=== PATIENT | male | born 1935 | race Caucasian/White ===

== ENCOUNTER → 2016-12-09 | Outpatient (CLI) | payer BC ==
[~2016-12-09] MED LIST: ACC10 PO; AMLO5TAB2 PO; AMOX500C3 PO; ASPI-435 PO; DUTA0.5C PO; HYDR-3419 PO; METO25TA3 PO; ROSU40TA PO; SERT-234 PO; TRIA37.5 PO; TRVOPS OP
[2016-12-09 12:27] LABS: ALT/SGPT 32 U/L (12-78); AST/SGOT 30 U/L (15-37); BLOOD UREA NITROGEN 35 mg/dl (7-18); BUN/CREATININE RATIO 29.4 (10-20); CALCIUM 9.4 mg/dl (8.5-10.1); CARBON DIOXIDE 28 mmol/L (21-32); CHLORIDE 105 mmol/L (98-107); CHOLESTEROL 128 mg/dl (0-200); GLUCOSE 111 mg/dl (70-99); SODIUM 141 mmol/L (136-145)
[2016-12-09 12:30] LABS: ALB/GLOB RATIO 1.1 (0.9-2); ALKALINE PHOSPHATASE 65 U/L (45-117); CHOLESTEROL/HDL RATIO 1.8; HDL CHOLESTEROL 73 mg/dl; LDL CHOLESTEROL CALCULATED 46 mg/dl; TRIGLYCERIDES 47 mg/dl (0-150); VERY LOW DENSITY LIPOPROT CALC 9 mg/dl
== END | disposition home or self-care (01) ==
LOC: C.LABPVFM 08:39
PROVIDERS: ATTEND Family Medicine
DX: E78.5 Hyperlipidemia, unspecified (principal); I10 Essential (primary) hypertension

== ENCOUNTER → 2017-04-12 | Outpatient (CLI) | payer BC ==
[2017-04-12 13:07] LABS: ALT/SGPT 30 U/L (12-78); BLOOD UREA NITROGEN 35 mg/dl (7-18); CARBON DIOXIDE 29 mmol/L (21-32); CHLORIDE 103 mmol/L (98-107); GLUCOSE 110 mg/dl (70-99); POTASSIUM 4.8 mmol/L (3.5-5.1); SODIUM 141 mmol/L (136-145)
[2017-04-12 13:10] LABS: ALKALINE PHOSPHATASE 64 U/L (45-117); AST/SGOT 32 U/L (15-37)
[2017-04-12 13:48] LABS: CALCIUM 9.4 mg/dl (8.5-10.1)
== END | disposition home or self-care (01) ==
LOC: C.LABPVFM 09:17
PROVIDERS: ATTEND Family Medicine
DX: I10 Essential (primary) hypertension (principal)

== ENCOUNTER → 2017-10-18 | Outpatient (CLI) | payer BC ==
[2017-10-18 13:01] LABS: BLOOD UREA NITROGEN 45 mg/dl (7-18); BUN/CREATININE RATIO 29.6 (10-20); CALCIUM 9.3 mg/dl (8.5-10.1); CARBON DIOXIDE 32 mmol/L (21-32); CHLORIDE 103 mmol/L (98-107); CREATININE 1.53 mg/dl (0.60-1.40); GLUCOSE 123 mg/dl (70-99); SODIUM 139 mmol/L (136-145)
== END | disposition home or self-care (01) ==
LOC: C.LABPVFM 09:47
PROVIDERS: ATTEND Physician Assistant
DX: R60.9 Edema, unspecified (principal)

== ENCOUNTER → 2017-11-11 | Outpatient (CLI) | payer BC ==
[~2017-11-11] MED LIST changes: +CARV3.122 PO; +CRG3125 PO; +FINA5TAB PO; +FURO40TA3 PO; +POTA10CA28 PO; +QUIN1TAB49 PO
[2017-11-11 13:04] LABS: BLOOD UREA NITROGEN 50 mg/dl (7-18); CALCIUM 9.3 mg/dl (8.5-10.1); CARBON DIOXIDE 32 mmol/L (21-32); CREATININE 1.43 mg/dl (0.60-1.40); GLUCOSE 169 mg/dl (70-99); POTASSIUM 4.8 mmol/L (3.5-5.1); SODIUM 139 mmol/L (136-145)
== END | disposition home or self-care (01) ==
LOC: C.LABPVFM 09:19
PROVIDERS: ATTEND Physician Assistant
DX: E87.6 Hypokalemia (principal)

== ENCOUNTER → 2018-01-13 | Outpatient (CLI) | payer BC ==
[~2018-01-13] MED LIST changes: -CARV3.122 PO; -CRG3125 PO; -FINA5TAB PO; -FURO40TA3 PO; -POTA10CA28 PO; -QUIN1TAB49 PO
[2018-01-13 12:30] LABS: HEMATOCRIT 43.3 % (42-52); HEMOGLOBIN 13.8 g/dL (14.0-18.0); MEAN CELL VOLUME 96.4 fL (80-100); MEAN CORPUSCULAR HEMOGLOBIN 30.7 pg (25-34); MEAN CORPUSCULAR HGB CONC 31.9 g/dl (32-36); MEAN PLATELET VOLUME 12.4 fL (7.4-10.4); PLATELET COUNT 182 K/uL (130-400); RED CELL DISTRIBUTION WIDTH CV 13.9 % (11.5-14.5); RED CELL DISTRIBUTION WIDTH SD 49.2 fL (36.4-46.3); WHITE BLOOD COUNT 6.04 K/uL (4.8-10.8)
[2018-01-13 13:14] LABS: ALBUMIN 4.1 gm/dl (3.4-5.0); ALT/SGPT 28 U/L (12-78); BLOOD UREA NITROGEN 37 mg/dl (7-18); CALCIUM 9.9 mg/dl (8.5-10.1); CARBON DIOXIDE 34 mmol/L (21-32); CHOLESTEROL 119 mg/dl (0-200); CREATININE 1.29 mg/dl (0.60-1.40); GLUCOSE 128 mg/dl (70-99); POTASSIUM 4.1 mmol/L (3.5-5.1); SODIUM 140 mmol/L (136-145)
[2018-01-13 13:17] LABS: ALKALINE PHOSPHATASE 83 U/L (45-117); AST/SGOT 32 U/L (15-37); LDL CHOLESTEROL CALCULATED 48 mg/dl; TOTAL PROTEIN 8.7 gm/dl (6.4-8.2)
== END | disposition home or self-care (01) ==
LOC: C.LABPVFM 09:25
PROVIDERS: ATTEND Family Medicine
DX: I10 Essential (primary) hypertension (principal); E78.5 Hyperlipidemia, unspecified

== ENCOUNTER → 2018-01-18 | Outpatient (CLI) | payer BC ==
--- NOTE | 2018-01-18 12:13 | DIAGNOSTIC IMAGING REPORT ---
(CHEST) THORAX WITHOUT CLINICAL HISTORY: R05 [id number] Pleural [id number] COMPARISON STUDY: June 30, 2016 CT DOSE: 602.52 mGycm TECHNIQUE: CT of the thorax was performed from the thoracic inlet to the lung bases. Images are reviewed in the axial, sagittal, and coronal planes. IV contrast was not administered for this examination. A dose lowering technique was utilized adhering to the principles of ALARA. FINDINGS: Thyroid: There is slight asymmetric enlargement of the left lobe of the thyroid. Thoracic aorta: The thoracic aorta is normal in course and caliber, noting standard 3 vessel arch anatomy. Heart: There are dense coronary artery calcifications. Lungs and pleural spaces: There is a large partially loculated right pleural effusion. There are right lung compressive atelectatic changes. No left pleural effusion is visualized. There is no focal pulmonary consolidation on the left. There is mild respiratory motion artifact. Mediastinum: No pathologically enlarged mediastinal lymph nodes are visualized. Tonya: There is no evidence of pathologic hilar adenopathy given the limitations of a noncontrast study Axilla: There is no pathologic axillary lymphadenopathy Upper abdomen: The gallbladder surgically absent Skeletal structures: There are postsurgical changes of a midline sternotomy. Sternal step-off on the sagittal reformatted views are felt to be secondary to respiratory motion artifact IMPRESSION: 1. Large right pleural effusion with right lung compressive atelectatic changes 2. No evidence of pathologic adenopathy Electronically signed by: Can Montelongo M.D. 01/18/2018 12:12 PM Dictated Date/Time: 01/18/2018 12:06 PM
== END | disposition home or self-care (01) ==
LOC: C.CTS 11:49
PROVIDERS: ATTEND Internal Medicine Critical Care Medicine
DX: J90 Pleural effusion, not elsewhere classified (principal); R05 Cough; R13.10 Dysphagia, unspecified

== ENCOUNTER → 2018-01-20 | Outpatient (CLI) | payer BC ==
--- NOTE | 2018-01-20 11:48 | DIAGNOSTIC IMAGING REPORT ---
VIDEO SWALLOW HISTORY: Dysphagia R05 [id number] Dysphagia TECHNIQUE: Video fluoroscopic evaluation of swallowing was performed in the AP and lateral projections by the speech pathology staff. The patient is fed nectar-thick and thin liquid barium, a barium coated wafer, and barium pudding. FLUOROSCOPY TIME: 1.7 minutes. COMPARISON STUDY: None. FINDINGS: There is normal hyoid excursion and epiglottic deflection. No significant penetration or aspiration identified. Swallowing function is within normal limits. IMPRESSION: 1. No aspiration identified. 2. Please see the speech pathologist report for detailed findings and recommendations. The above report was generated using voice recognition software. It may contain grammatical, syntax or spelling errors. Electronically signed by: Bernard Cabrales M.D. 01/20/2018 11:47 AM Dictated Date/Time: 01/20/2018 11:45 AM
--- NOTE | 2018-01-20 11:49 | SWALLOWING EVALUATION ---
HISTORY: This 82 year-old man, from home, was referred for a VFSS at [facility] secondary to complaints of coughing after intake. Currently the patient's diet level is regular with thins. Pt. has a past medical history significant for CAPD CABG, SOB, abdominal pain, osteoarthritis. PROCEDURE: The patient was seen in the Radiology Department of [facility] for the VFSS. Cursory examination of the oral cavity revealed adequate dentition. Movement of the articulators was WNL. Pt. presented as OUZINKIE. The patient was seated in a wheelchair and was viewed in both the Anterior-Posterior (A-P) and Lateral planes. Volitional phonation exercises completed in the A-P plane revealed bilateral vocal fold movement and vocal intensity within functional limits. In the lateral plane, the patient was given the following barium-infused boluses: 1 tsp thin barium with oral hold 1x, self presented single cup swallow-thin barium 1x, self presented serial cup swallow 1x. 1 tsp nectar thick barium with oral hold 1x, self presented single cup swallow- nectar thick barium 1x. Esophageal scan was completed with 1 tsp of barium infused pudding. RESULTS: Oral Phase: Pt. had no labial escape of any food or liquid items presented. Pt. demonstrated a cohesive bolus between tongue and palatal seal. Timely and efficient chewing and mashing was observed with all consistencies as well as brisk tongue motion and complete oral clearance. Initiation of pharyngeal swallow began with bolus head in the valleculae. Overall WFL for oral phase of swallow. Pharyngeal Phase: Soft Palate Elevation was complete for all boluses. Laryngeal elevation and movement of thyroid cartilage was WFL with complete approximation of arytenoids to epiglottic base. Anterior Hyoid excursion was WFL and complete epiglottic inversion noted. Laryngeal Vestibular closure was complete with no barium noted in laryngeal vestibule or on the valleculae. Tongue base retraction was noted with all consistencies and tongue base made effective contact with posterior pharyngeal wall throughout study. No pharyngeal residue was observed. Overall WFL for pharyngeal phase of the swallow. Pt. did NOT aspirate or penetrate on food items presented. Esophageal Phase: Opening and closing of the UES noted. Espohageal stage of the swallow appeared WFL. SUMMARY/RECOMMENDATIONS: Overall pt. presented as WFL for oral-pharyngeal stages of the swallow. Recommendin. Regular diet with thin liquids. 2. Safe Swallow Strategies (small bite, small sips, slow rate) Thank you for referral of this patient. Please contact me at if any additional information is needed.
== END | disposition home or self-care (01) ==
LOC: C.RAD 11:09
PROVIDERS: ATTEND Internal Medicine Critical Care Medicine
DX: R05 Cough (principal); R13.10 Dysphagia, unspecified

== ENCOUNTER 2018-02-01 10:02 | Day surgery (SDC) | payer BC ==
--- NOTE | 2018-01-31 17:53 | History and Physical ---
History & Physical Date of Service Jan 31, 2018. History & Physical The patient is a pleasant 82 year old male that presents today for ultrasound evaluation of possible thoracentesis of a large right-sided loculated pleural effusion. Recent CT of the chest performed 01/18/2018 reviewed in notable for multiple loculated effusions on the right hemithorax ease. 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 His post-operative course was notable for right pleural effusion requiring thoracentesis but was otherwise unremarkable. Additional PMH includes hypertension, hyperlipidemia, decompensated diastolic heart failure, extensive CAD, and osteoarthritis. As a child, he had rheumatic fever at age 9. He denies childhood asthma or allergies. He is hard of hearing and wears bilateral hearing aids. He denies a family history of lung disease. His mother was killed in an accident and his father of a CVA at age 78. He is a lifetime nonsmoker. He denies any alcohol consumption or drug use. He lives with his in the home they built in 1981. He has no known exposures. His house has not been tested for radon but reports that they do not use the basement of their home. He denies mold/ mildew in the home. No current pets. They use electric heat. 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 He rarely travels. He denies history of TB exposure. He has no known allergies. He denies history of GERD. The referral from the [facility] pulmonology department requests management of right pleural effusion. The referral notes worsening of right pleural effusion by chest x-ray 10/2017 with increased systemic symptoms of fluid overload. The referral notes that the right pleural effusion was initially noted 05/2016 with symptomatic improvement with adjustment of diuretics. CT chest 12/11/2013 significantly elevated right hemidiaphragm is noted. The elevated hemidiaphragm is also noted when reviewing post-operative chest x-ray films from 01/16/2008. He reports that he has had recent testing including the following: Echocardiogram 09/07/2017. Results reviewed note pulmonary pressures significantly increased with PASP estimated 82 mm Hg, severe concentric LVH, EF 66%, grade II systolic dysfunction, moderate calcification of the posterior mitral valve annulus, mild MR and TR, and moderate biatrial enlargement. Pulmonary function testing 02/04/2017 with FVC 66% (+5), FEV1 61% (+10), TLC 90%, RV 140%. Nocturnal pulse oximetry 12/31/2016 without desaturation. He states he has had a persistent cough for some time. He is unable to identify when the cough began. He states he notes that the cough worsens after eating and drinking. At times the cough is productive of a thick yellow sputum. He also experiences nausea at times with eating. He does have shortness of breath with activity. His states this is not new but is unable to identify when it began. He states that it will resolve with rest. His states his snoring has improved over the years. He is relatively active outside and does not feel that the shortness of breath limits his activities. He reports that he had about a 10 pound weight gain when evaluated last at [facility]. His weight was noted 11/23/2017 at 207 pounds. Weight today is down at 201 pounds 6 oz. He does report bilateral lower extremity edema. He denies chest pain, palpitations, abdominal pain, vomiting. He reports that he is taking all medications as directed and denies side effects from medications. Active Problems 1. Abrasion of forearm 2. Aortic valve replaced 3. Benign localized hyperplasia of prostate with urinary obstruction 4. Benign neoplasm of skin of upper limb, including shoulder (D23.60) 6. CAD (coronary atherosclerotic disease) (I25.10) 7. Cervical spondylosis (M47.812) 8. Chronic low back pain (M54.5,G89.29) 9. Cognitive disorder (F09) 10. Cough (R05) 11. Depression (F32.9) 12. Diverticulosis of colon (K57.30) 13. Dyslipidemia (E78.5) 14. Dyspnea on exertion (R06.09) 15. Edema (R60.9) 16. Elevated serum creatinine (R79.89) 17. Fluid overload, unspecified (E87.70) 18. Gait disorder (R26.9) 19. Glaucoma (H40.9) 20. Hearing loss (H91.90) 21. Hyperkalemia (E87.5) 22. Hyperkeratosis of skin (L85.9) 23. Hypertension (I10) 24. Impaired fasting glucose (R73.01) 25. Left shoulder pain (M25.512) 26. Osteoarthritis (M19.90) 27. Peripheral edema (R60.9) 28. Wound, open, wrist (S61.509A) Past Medical History 1. History of Cholelithiasis 2. History of rheumatic fever (Z86.79) Surgical History 1. History of Bypass Graft Using Vein: Femoral-popliteal 2. History of Cholecystectomy Laparoscopic 3. History of Heart Valve Replacement 4. History of Total Hip Replacement 5. History of Umbilical Hernia Repair 6. CABG x 1 vessel replacement on 01/01/2008 7. 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 Family history of diabetes mellitus (Z83.3) Social History Marital History - Currently Never a smoker Never Drank Alcohol Never used moist powdered tobacco (Z78.9) No secondhand smoke exposure (Z78.9) Retired From Work Current Meds 1. Finasteride 5 MG Oral Tablet; TAKE 1 TABLET DAILY DIRECTED; 2. Finasteride 5 MG Oral Tablet; TAKE 1 TABLET DAILY; 3. Sertraline HCl - 100 MG Oral Tablet; 4. Crestor 40 MG Oral Tablet; Take 1 tablet daily; 5. Aspirin EC 81 MG Oral Tablet Delayed Release; 2 daily; 6. Quinapril HCl - 40 MG Oral Tablet; TAKE 1 TABLET DAILY; 7. Amoxicillin 500 MG Oral Tablet; take four one hour before procedure; 8. Carvedilol TABS; 9. Furosemide 40 MG Oral Tablet; 10. Potassium Chloride ER 20 MEQ Oral Tablet Extended Release; one tab daily; Allergies 1. No Known Drug Allergies Immunizations Pneumo Other --- Series1: 30-Sep-2008 Td/DT --- Series1: 19-Apr-2017 Vital Signs Height: 5 ft 7 in Weight: 201 lb 6 oz BMI Calculated: 31.54 BSA Calculated: 2.03 Respiration: 18 Blood Pressure: 146 / 88, LUE, Sitting O2 Saturation: 95, RA Heart Rate: 80 Temperature: 98 F Constitutional General appearance: No acute distress, well appearing and well nourished. Eyes Conjunctiva and lids: No swelling, erythema, or discharge. Pupils and irises: Equal, round and reactive to light. Ears, Nose, Mouth, and Throat External inspection of ears and nose: Normal. Otoscopic examination: Tympanic membrance translucent with normal light reflex. Canals patent without erythema. Oropharynx: Normal with no erythema, edema, exudate or lesions. Pulmonary Respiratory effort: No increased work of breathing or signs of respiratory distress. Auscultation of lungs: Abnormal. Decreased breath sounds with dullness/no cough any noted in right lower lobe posterior subsegment. Cardiovascular Palpation of heart: Normal PMI, no thrills. Auscultation of heart: Normal rate and rhythm, normal S1 and S2, without murmurs. Examination of extremities for edema and/or varicosities: Normal. Abdomen Abdomen: Non-tender, no masses. Liver and spleen: No hepatomegaly or splenomegaly. Lymphatic Palpation of lymph nodes in neck: No lymphadenopathy. Musculoskeletal Gait and station: Normal. Digits and nails: Normal without clubbing or cyanosis. Inspection/palpation of joints, bones, and muscles: Normal. Skin Skin and subcutaneous tissue: Normal without rashes or lesions. Neurologic Cranial nerves: Cranial nerves 2-12 intact. Reflexes: 2+ and symmetric. Sensation: No sensory loss. Psychiatric Orientation to person, place and time: Normal. Mood and affect: Normal.
[~2018-02-01] VITALS: Ht 172.7 cm; Wt 89.0 kg
[2018-02-01 10:30] VITALS: BP 134/76; PULSE 73; TEMP 36.5; O2SAT 95; Ht 172.7 cm; Wt 89.0 kg
--- NOTE | 2018-02-01 10:43 | History & Physical Bridge Note ---
H&P Re-Evaluation Bridge Note: I have examined the patient, reviewed the History & Physical and in the interval since the performance of the History & Physical I have noted the following changes of clinical significance: No changes noted
[2018-02-01 10:55] LABS: INR 1.1 (0.9-1.1)
[2018-02-01 11:45] VITALS: BP 149/87; PULSE 70; TEMP 36.7; O2SAT 98
--- NOTE | 2018-02-01 11:54 | Procedure Note ---
Procedure Note Date of Service Feb 01, 2018. Procedure Note Procedures: Right sided Thoracentesis Consent: obtained via the patient and placed into the chart Pre-Procedural Dx: Chronic right-sided pleural effusion Post-Procedural Dx: Chronic right-sided pleural effusion Analgesia: 8cc of 1% Liquid Lidocaine Procedure: The patient was placed in an upright position and thoracic US was used to select a spot for the procedure. A spot along the posterior axillary line was marked in the 7th intercostal space. The patient was then draped and prepped in a sterile fashion. A modified Seldinger technique was then used for catheter placement. Flowing this approximately 1500cc of dark yellow pleural fluid was removed. The patient was then cleaned and placed at a 60 degree angle in the bed were the US was used to evaluate for possible pneumothorax. The US showed good lung sliding and [place]on [place] sign. Notable traumatic improvement in the overall fluid level via ultrasound now only minimal to moderate in size. EBL: none Complications: none
--- NOTE | 2018-02-01 11:55 | Discharge Instructions ---
Discharge Instructions Date of Service Feb 01, 2018. Admission Reason for Admission: Pleural Effusion Discharge Discharge Diagnosis / Problem: Chronic right-sided pleural effusion Discharge Goals Goal(s): Improve function, Diagnostic testing Activity Recommendations Activity Limitations: resume your previous activity Exercise/Sports Limitations: rest today Shower/Bathe: no limitations Driving or Machine Use: no limitations . Instructions / Follow-Up Instructions / Follow-Up At the [facility] pulmonary clinic Current Hospital Diet Patient's current hospital diet: Discharge Diet Recommended Diet: Regular Diet Procedures Procedures Performed: Right-sided pleural effusion under ultrasound guidance Pending Studies Studies pending at discharge: no Laboratory Results Lipid Panel Test 01/13/18 09:25 Range/Units Triglycerides Level 71 0-150 mg/dl Cholesterol Level 119 0-200 mg/dl HDL Cholesterol 57 mg/dl Cholesterol/HDL Ratio 2.1 LDL Cholesterol, Calculated 48 mg/dl Medical Emergencies . Who to Call and When: Medical Emergencies: If at any time you feel your situation is an emergency, please call 911 immediately. . Non-Emergent Contact Non-Emergency issues call your: Manager [employer] Call Non-Emergent contact if: you have a fever, temperature is above 101 . . "Provider Documentation" section prepared by Perfecto Eckert. .
[2018-02-01 12:03] VITALS: BP 160/74; PULSE 71; TEMP 36.7; O2SAT 98
[2018-02-01 12:18] VITALS: BP 163/84; PULSE 87; TEMP 36.7; O2SAT 94
[2018-02-01 12:37] LABS: PLEURAL FLUID TOTAL PROTEIN 4.3 g/dl
== END 2018-02-01 12:20 | disposition home or self-care (01) ==
LOC: C.ACU 10:02
PROVIDERS: ATTEND Internal Medicine Critical Care Medicine
DX: J90 Pleural effusion, not elsewhere classified (principal); I11.0 Hypertensive heart disease with heart failure; I50.30 Unspecified diastolic (congestive) heart failure; N40.0 Benign prostatic hyperplasia without lower urinary tract symptoms; I25.10 Atherosclerotic heart disease of native coronary artery without angina pectoris; E78.5 Hyperlipidemia, unspecified; R73.01 Impaired fasting glucose; M19.90 Unspecified osteoarthritis, unspecified site; Z79.82 Long term (current) use of aspirin; Z98.62 Peripheral vascular angioplasty status; Z95.2 Presence of prosthetic heart valve; Z95.1 Presence of aortocoronary bypass graft; Z82.3 Family history of stroke; Z83.3 Family history of diabetes mellitus

== ENCOUNTER → 2018-02-06 | Outpatient (CLI) | payer BC ==
--- NOTE | 2018-02-06 16:18 | DIAGNOSTIC IMAGING REPORT ---
(CHEST) THORAX WITHOUT CLINICAL HISTORY: 82 years-old Male presenting with R05 [id number] Pleural effusion Patient is status post thoracentesis. TECHNIQUE: Multidetector CT imaging of the chest was performed without the use of intravenous contrast. IV contrast: None. A dose lowering technique was used consistent with the principles of ALARA (as low as reasonably achievable). COMPARISON: 01/18/2018. CT DOSE (mGy.cm): The estimated cumulative dose is 494.34 mGycm. FINDINGS: Endodontic Assistant topogram: Median sternotomy wires and cholecystectomy clips. Moderate to large right pleural effusion. On soft tissue windows, enlarged thyroid. No axillary, supraclavicular, or mediastinal lymphadenopathy. Evaluation of the rosa limited without intravenous contrast. Atherosclerosis of the aorta. Multichamber enlargement of the heart. Coronary artery, mitral annular, and aortic valve calcification. Moderate loculated right pleural effusion. No left pleural effusion. No pericardial effusion. Upper abdomen normal. On lung windows, extensive consolidation and volume loss in the right lower and middle lobes. Small anterior right pneumothorax. Larger pneumothorax component at the right apex. Minimal bandlike opacities at the left lung base likely atelectasis. Bronchial wall thickening, right greater than left. Central airways remain patent. On bone windows, sternotomy changes. Degenerative changes of the spine. Degenerative changes of the bilateral glenohumeral joints, left greater than right. Loose body noted in the subcoracoid recess on the right. IMPRESSION: 1. Loculated right hydropneumothorax. Moderate fluid component and two small pneumothorax components. 2. Extensive right mid and lower lobe consolidation, which may represent extensive atelectasis although underlying infection cannot be excluded. 3. Bronchial wall thickening could indicate congestive change or bronchitis. 4. Cardiomegaly. The report will be called/faxed according to standard departmental protocol. Electronically signed by: Damon Manuel M.D. 02/06/2018 4:17 PM Dictated Date/Time: 02/06/2018 4:11 PM
== END | disposition home or self-care (01) ==
LOC: C.CTS 15:30
PROVIDERS: ATTEND Internal Medicine Critical Care Medicine
DX: J90 Pleural effusion, not elsewhere classified (principal); R05 Cough; J94.2 Hemothorax

== ENCOUNTER → 2018-07-10 | Outpatient (CLI) | payer BC, OTHER ==
[~2018-07-10] MED LIST changes: -ACC10 PO; -AMLO5TAB2 PO; +CARV3.122 PO; +CRG3125 PO; -DUTA0.5C PO; +FINA5TAB PO; +FURO40TA3 PO; -HYDR-3419 PO; -METO25TA3 PO; +POTA10CA28 PO; +QUIN1TAB49 PO; -TRIA37.5 PO; -TRVOPS OP
[2018-07-10 12:26] LABS: HEMOGLOBIN 10.1 g/dL (14.0-18.0); MEAN CELL VOLUME 95.2 fL (80-100); MEAN CORPUSCULAR HEMOGLOBIN 30.1 pg (25-34); MEAN CORPUSCULAR HGB CONC 31.6 g/dl (32-36); MEAN PLATELET VOLUME 11.3 fL (7.4-10.4); PLATELET COUNT 211 K/uL (130-400); RED CELL DISTRIBUTION WIDTH CV 13.9 % (11.5-14.5); RED CELL DISTRIBUTION WIDTH SD 48.1 fL (36.4-46.3); WHITE BLOOD COUNT 7.14 K/uL (4.8-10.8)
[2018-07-10 13:10] LABS: ALBUMIN 3.4 gm/dl (3.4-5.0); ALKALINE PHOSPHATASE 85 U/L (45-117); ALT/SGPT 22 U/L (12-78); AST/SGOT 26 U/L (15-37); BLOOD UREA NITROGEN 74 mg/dl (7-18); CARBON DIOXIDE 28 mmol/L (21-32); CHOLESTEROL 103 mg/dl (0-200); CREATININE 1.82 mg/dl (0.60-1.40); GLUCOSE 133 mg/dl (70-99); LDL CHOLESTEROL CALCULATED 43 mg/dl; POTASSIUM 3.8 mmol/L (3.5-5.1); SODIUM 133 mmol/L (136-145); TOTAL PROTEIN 8.4 gm/dl (6.4-8.2)
== END | disposition home or self-care (01) ==
LOC: C.LABPVFM 09:51
PROVIDERS: ATTEND Physician Assistant
DX: I50.33 Acute on chronic diastolic (congestive) heart failure (principal); R73.01 Impaired fasting glucose; S50.819A Abrasion of unspecified forearm, initial encounter; X58.XXXA Exposure to other specified factors, initial encounter

== ENCOUNTER 2019-03-16 19:39 | Inpatient (IN) ==
[2019-03-16] MEDS ORDERED: SODIUM CHLORIDE 0.9% 1000ML 500 ML IV ONE (20:46)
[2019-03-16 20:49] LABS: Hematocrit (blood only) 25.1 % (42-52); Hemoglobin 7.9 g/dL (14.0-18.0); Mean Corpuscular Hgb Conc 31.5 g/dL (32-36); Mean Corpuscular Volume 82.6 fL (80-100); Mean Platelet Volume 10.1 fL (7.4-10.4); Platelet Count 479 K/uL (130-400); RDW Coefficient of Variation 16.7 % (11.5-14.5); RDW Standard Deviation 50.1 fL (36.4-46.3); Red Blood Count 3.04 M/uL (4.7-6.1); White Blood Count 13.52 K/uL (4.8-10.8)
[2019-03-16 20:57] LABS: Albumin Level 2.6 gm/dl (3.4-5.0); Calcium 9.3 mg/dl (8.5-10.1); Creatinine Clr Calc Pharmacy 27.3 ml/min; Est GFR (African American) 34.8; Potassium 3.8 mmol/L (3.5-5.1)
[2019-03-16 21:00] LABS: Albumin Globulin Ratio 0.4 (0.9-2); Bilirubin,Total 0.5 mg/dl (0.2-1); Globulin 5.8 gm/dl (2.5-4.0); Magnesium 2.2 mg/dl (1.8-2.4); Total Protein 8.4 gm/dl (6.4-8.2)
[2019-03-16 21:08] LABS: Partial Thromboplastin Ratio 1.9; Prothrombin Time 70.1 Seconds (9.0-12.0)
--- NOTE | 2019-03-16 21:09 | Emergency Department Note ---
Entered by Dannie Walker acting as a scribe for Aydin Peralta MD History of Present Illness General Chief complaint: GI Bleed Stated complaint: GI BLEED Time Seen by Provider: 03/16/19 20:36 Source: patient and family History of Present Illness Onset (ago): hour(s) (labs drawn at 14:30) Location: head (global) Pain Consistency: + other (persistent weakness but denies pain) Quality: + other (bloodwork showing anemia) Associated symptoms: + weakness and + other (appears pale per family) The patient is an 83 year old male who presents to the Emergency Room after referral for anemia. Family reports that the patient had blood work drawn at 14:30 during a routine visit with his [facility] button bradder, and he was referred to the ER for anemia. Family states that the patient has generally been declining over the past few months, and for the past couple of weeks he has felt weaker. He has also appeared pale over the past couple of days. The patient denies any known melena or hematochezia. He also denies pain, changes in his chronic shortness of breath, history of GI bleeding, or history of transfusion. Family states that the patient takes Warfarin. Home Medications Home Medications Medication Instructions Recorded Confirmed Type acetaminophen [Tylenol Arthritis 1,300 mg PO Q8H PRN 10/06/18 03/16/19 History Pain] amoxicillin 2,000 mg PO DIRECTED PRN 10/06/18 03/16/19 History aspirin [Aspir-81] 162 mg PO QPM 10/06/18 03/16/19 History finasteride 5 mg PO QAM 10/06/18 03/16/19 History nitroglycerin 0.4 mg SUBLINGUAL DIRECTED PRN 10/06/18 03/16/19 History sertraline 100 mg PO QPM 10/06/18 03/16/19 History furosemide 60 mg PO QPM 03/16/19 03/16/19 History furosemide 80 mg PO QAM 03/16/19 03/16/19 History metformin 500 mg PO BID 03/16/19 03/16/19 History potassium chloride 10 meq PO QAM 03/16/19 03/16/19 History spironolactone 12.5 mg PO QAM 03/16/19 03/16/19 History warfarin 2 mg PO WK 03/16/19 03/16/19 History warfarin 4 mg PO 6XWK 03/16/19 03/16/19 History Allergies Allergy/AdvReac Type Severity Reaction Status Date / Time No Known Allergies Allergy Unknown Verified 03/18/04 07:51 Past Med/Surg History Medical History CAD in [place] artery Chronic diastolic heart failure Dyslipidemia, goal LDL below 70 HTN (hypertension) Recurrent 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 and A total of 10 systems reviewed and were otherwise negative Physical Exam Vital Signs Vital Signs - 24 hr 03/16/19 19:55 03/16/19 20:32 03/16/19 22:22 Temperature 36.7 C Temperature Source Oral Sepsis Recent Fever Within 48 Hours No Sepsis New/Unexplained Change in Mental Status No Sepsis Action Taken by Nursing No Action Required Pulse Rate 104 H 76 Pulse Rate [Apical] 75 72 Respiratory Rate 18 18 16 Blood Pressure 106/61 Blood Pressure [Right Arm] 123/62 122/69 Blood Pressure Mean 76 Blood Pressure Mean [Right Arm] 82 86 Pulse Oximetry 95 97 99 Oxygen Delivery Method Room Air Room Air Room Air 03/16/19 22:27 03/16/19 22:37 Temperature Temperature Source Sepsis Recent Fever Within 48 Hours Sepsis New/Unexplained Change in Mental Status Sepsis Action Taken by Nursing Pulse Rate Pulse Rate [Apical] 76 74 Respiratory Rate 18 18 Blood Pressure Blood Pressure [Right Arm] 118/57 L 115/86 Blood Pressure Mean Blood Pressure Mean [Right Arm] 77 95 Pulse Oximetry 98 97 Oxygen Delivery Method Room Air Room Air GENERAL: Patient is in no acute distress. HEENT: No acute trauma, normocephalic atraumatic, mucous membranes moist, no nasal congestion, no scleral icterus. NECK: No stridor, no adenopathy, no meningismus, trachea is midline. LUNGS: Diminished breath sounds bilaterally, breath sounds equal, no wheezing or rhonchi. HEART: Without murmurs gallops or rubs, regular rate and rhythm. ABDOMEN: Soft, nontender, bowel sounds positive, no hernias, no peritonitis. RECTAL: Brown stool, heme positive. EXTREMITIES: No cyanosis, mild bilateral pedal edema, full range of motion of all the joints without pain or difficulty, no signs for acute trauma. NEUROLOGIC: Oriented x 3, no acute motor or sensory deficits, no focal weakness. SKIN: Somewhat pale-appearing, no rash, no jaundice, no diaphoresis. Course 2037: The patient was evaluated in room A10. A complete history and physical examination were performed. 2122: I spoke to Dr. Hood Coagulation White Lead Filterer. She recommended vitamin K only. 2129: I updated the family on results and current plan. 2134: I consulted Dr. Schroeder [facility] Hospitalist. The patient will be reevaluated for hospitalization. Administered Medications Discontinued Medications Ranitidine HCl 50 mg/ Dextrose 102 mls @ 200 mls/hr IV NOW STA Stop: 03/16/19 21:18 Last Infusion: 03/16/19 22:18 Dose: 0 mls/hr Documented by: [id number] Admin: 03/16/19 21:38 Dose: 200 mls/hr Documented by: [id number] Sodium Chloride (Nss 1000ml) 500 mls @ 999 mls/hr IV .Q31M ONE Stop: 03/16/19 21:16 Last Infusion: 03/16/19 21:44 Dose: 0 mls/hr Documented by: [id number] Admin: 03/16/19 21:12 Dose: 999 mls/hr Documented by: [id number] Phytonadione 10 mg/ Sodium (Chloride) 51 mls @ 102 mls/hr IV ONE ONE Stop: 03/16/19 21:53 Last Admin: 03/16/19 22:23 Dose: 102 mls/hr Documented by: [id number] Medical Decision Making Differential Diagnosis Differential diagnosis: upper or lower GI bleed, anemia, electrolyte imbalance, coagulopathy, renal or liver failure, pneumonia, UTI Medical Records Attestation: I reviewed the patient's medical records. Home Medications Current Medication List: was personally reviewed by me Laboratory Data Attestation: I reviewed the patient's lab results. Result diagrams: 03/16/19 20:27 03/16/19 20:27 Lab Results 03/16/19 03/16/19 03/16/19 Range/Units 20:27 20:27 20:27 WBC 13.52 H (4.8-10.8) K/uL RBC 3.04 L (4.7-6.1) M/uL Hgb 7.9 L (14.0-18.0) g/dL Hct 25.1 L (42-52) % MCV 82.6 (80-100) fL MCH 26.0 (25-34) pg MCHC 31.5 L (32-36) g/dL RDW Std Deviation 50.1 H (36.4-46.3) fL RDW Coeff of [place] 16.7 H (11.5-14.5) % Plt Count 479 H (130-400) K/uL MPV 10.1 (7.4-10.4) fL PT 70.1 H (9.0-12.0) Seconds INR 7.9 H* (0.9-1.1) APTT 50.2 H* (21.0-31.0) Seconds PTT Ratio 1.9 Sodium 134 L (136-145) mmol/L Potassium 3.8 (3.5-5.1) mmol/L Chloride 92 L (98-107) mmol/L Carbon Dioxide 33 H (21-32) mmol/L Anion Gap 10.0 (3-11) BUN 72 H (7-18) mg/dl Creatinine 2.01 H (0.6-1.4) mg/dl Est Cr Clr Drug Dosing 27.3 ml/min Est GFR ( Amer) 34.8 Est GFR (Non-Af Amer) 30.0 BUN/Creatinine Ratio 36.0 H (10-20) Glucose 161 H (70-99) mg/dl Calcium 9.3 (8.5-10.1) mg/dl Magnesium 2.2 (1.8-2.4) mg/dl Total Bilirubin 0.5 (0.2-1) mg/dl AST 26 (15-37) U/L ALT 22 (12-78) U/L Alkaline Phosphatase 133 H (45-117) U/L Troponin I 0.276 H* (0-0.045) ng/ml Total Protein 8.4 H (6.4-8.2) gm/dl Albumin 2.6 L (3.4-5.0) gm/dl Globulin 5.8 H (2.5-4.0) gm/dl Albumin/Globulin Ratio 0.4 L (0.9-2) POC Stool Occult Blood (Negative) Blood Type Antibody Screen 03/16/19 03/16/19 Range/Units 20:27 20:59 WBC (4.8-10.8) K/uL RBC (4.7-6.1) M/uL Hgb (14.0-18.0) g/dL Hct (42-52) % MCV (80-100) fL MCH (25-34) pg MCHC (32-36) g/dL RDW Std Deviation (36.4-46.3) fL RDW Coeff of [place] (11.5-14.5) % Plt Count (130-400) K/uL MPV (7.4-10.4) fL PT (9.0-12.0) Seconds INR (0.9-1.1) APTT (21.0-31.0) Seconds PTT Ratio Sodium (136-145) mmol/L Potassium (3.5-5.1) mmol/L Chloride (98-107) mmol/L Carbon Dioxide (21-32) mmol/L Anion Gap (3-11) BUN (7-18) mg/dl Creatinine (0.6-1.4) mg/dl Est Cr Clr Drug Dosing ml/min Est GFR ( Amer) Est GFR (Non-Af Amer) BUN/Creatinine Ratio (10-20) Glucose (70-99) mg/dl Calcium (8.5-10.1) mg/dl Magnesium (1.8-2.4) mg/dl Total Bilirubin (0.2-1) mg/dl AST (15-37) U/L ALT (12-78) U/L Alkaline Phosphatase (45-117) U/L Troponin I (0-0.045) ng/ml Total Protein (6.4-8.2) gm/dl Albumin (3.4-5.0) gm/dl Globulin (2.5-4.0) gm/dl Albumin/Globulin Ratio (0.9-2) POC Stool Occult Blood Positive A (Negative) Blood Type A Positive Antibody Screen NEGATIVE Imaging Data Radiologist's Impression: Radiology results as stated below per my review and the radiologist's interpretation: SINGLE VIEW CHEST CLINICAL HISTORY: Generalized weakness. Dyspnea. FINDINGS: An AP, portable, upright chest radiograph is compared to study dated 10/06/2018 and correlated with chest CT dated 02/06/2018. The examination is degraded by portable technique and patient rotation. The patient is status post midline sternotomy. The heart is enlarged and there is atherosclerotic calcification of the thoracic aorta. There is prominence of the pulmonary vasculature. There is a moderate right pleural effusion with associated atelectasis, similar in appearance to previous. Scarring/atelectasis is noted at the left lung base. No pneumothorax is seen. The skeletal structures are osteopenic. There are healed left-sided rib fractures. Advanced arthritic change is seen in the shoulders and thoracic spine. IMPRESSION: 1. Cardiomegaly with prominence of the pulmonary vasculature. Correlate clinically for evidence of mild congestive failure. 2. A moderate right pleural effusion with associated atelectasis is similar to previous. Electronically signed by: Aydin Benitez M.D. 03/16/2019 9:44 PM Blood Pressure Blood Pressure Findings: Normal blood pressure Blood Pressure Disposition: did not require urgent referral MDM Narrative There is a mild leukocytosis, this could be consistent with infection or the stress of his situation. The patient is anemic with a hemoglobin of 7.9, this is a drop for him. INR is quite elevated at 7.9, he is over anticoagulated. Renal panel testing shows a slightly high creatinine, this is consistent with some dehydration and some mild renal insufficiency. BUN was also elevated at 72. No hepatitis. Stool was brown in color but did test heme positive. EKG showed a sinus rhythm, no acute ischemia. Cardiac enzyme testing x1 was slightly elevated, this could be consistent with cardiac injury or strain or possibly just mismatch. Chest film showed a chronic effusion on the right, today's film looked similar to previous films, no pneumonia. The patient received IV Zantac, he was given IV saline. I did speak with our coagulation philatelic consultant, she recommended vitamin K IV. No Kcentra was thought warranted at this point. Patient was given IV vitamin K, he received 10 mg. I spoke to the patient, I spoke with his family. I did talk with case management. A hospital stay is warranted. The patient is likely going to require a blood transfusion. He needs closely followed as he is quite over anticoagulated. He may require an endoscopy to find the source of bleeding. The on-call hospitalist was consulted. Impression & Plan GI bleed, Anemia, Weakness, Elevated INR Discharge Plan Visit Data Chief Complaint: GI Bleed Stated Complaint: GI BLEED ED Provider: Aydin Peralta Discharge Problem: GI bleed, Anemia, Weakness, Elevated INR Patient Disposition: Being Evaluated by Hospitalist Forms Stand Alone Forms: My [facility] Prescriptions Prescriptions: No Action amoxicillin 500 mg Capsule 2,000 mg PO DIRECTED PRN (Reason: Prior to Dental Appointments) RF: 0 sertraline 100 mg Tablet 100 mg PO QPM RF: 0 aspirin [Aspir-81] 81 mg Tablet,Delayed Release (Dr/Ec) 162 mg PO QPM RF: 0 acetaminophen [Tylenol Arthritis Pain] 650 mg Tablet Extended Release 1,300 mg PO Q8H PRN (Reason: Pain) RF: 0 nitroglycerin 0.4 mg Tablet, Sublingual 0.4 mg Sublingual DIRECTED PRN (Reason: Chest Pain) RF: 0 finasteride 5 mg Tablet 5 mg PO QAM RF: 0 furosemide 40 mg tablet 80 mg PO QAM RF: 0 furosemide 40 mg tablet 60 mg PO QPM RF: 0 metformin 500 mg tablet 500 mg PO BID RF: 0 potassium chloride 10 mEq tablet extended release 10 meq PO QAM RF: 0 spironolactone 25 mg tablet 12.5 mg PO QAM RF: 0 warfarin 2 mg tablet 4 mg PO [id number] RF: 0 warfarin 2 mg tablet 2 mg PO WK RF: 0 Referrals Referrals: Lulu Desir MD [Primary Care Provider] - Discharge Problem: GI bleed Qualifiers: GI bleed type/associated pathology: unspecified gastrointestinal hemorrhage type Qualified Code(s): K92.2 - Gastrointestinal hemorrhage, unspecified Anemia Qualifiers: Anemia type: unspecified type Qualified Code(s): D64.9 - Anemia, unspecified The scribe's documentation has been prepared under my direction and personally reviewed by me in its entirety. I confirm that the note above accurately reflects all work, treatment, procedures, and medical decision making performed by me.
[2019-03-16 21:13] LABS: INR 7.9 (0.9-1.1)
[2019-03-16 21:14] LABS: Partial Thromboplastin Time 50.2 Seconds (21.0-31.0)
[2019-03-16] MEDS ORDERED: PHYTONADIONE 10 MG in SODIUM CHLORIDE 0.9% 50 ML IV ONE (21:24)
[2019-03-16 21:33] LABS: Troponin I 0.276 ng/ml (0-0.045)
--- NOTE | 2019-03-16 21:46 | XRay Report ---
SINGLE VIEW CHEST CLINICAL HISTORY: Generalized weakness. Dyspnea. FINDINGS: An AP, portable, upright chest radiograph is compared to study dated 10/06/2018 and correla yusef with chest CT dated 02/06/2018. The examination is degraded by portable technique and patient rota tion. The patient is status post midline sternotomy. The heart is enlarged and there is atherosclero tic calcification of the thoracic aorta. There is prominence of the pulmonary vasculature. There is a moderate right pleural effusion with associated atelectasis, similar in appearance to previous. Scar ring/atelectasis is noted at the left lung base. No pneumothorax is seen. The skeletal structures are osteopenic. There are healed left-sided rib fractures. Advanced arthritic change is seen in the shou lders and thoracic spine. IMPRESSION: 1. Cardiomegaly with prominence of the pulmonary vasculature. Correlate clinically for evidence of mi ld congestive failure. 2. A moderate right pleural effusion with associated atelectasis is similar to previous. Electronically signed by: Aydin Benitez M.D. 03/16/2019 9:44 PM
--- NOTE | 2019-03-17 00:06 | History & Physical Report ---
Date of Service March 16, 2019 Assessment & Plan (1) GI bleed: 83-year-old male with history of high blood pressure, hyperlipidemia, diastolic CHF, paroxysmal A. fib, coronary artery disease status post CABG x1 in December 2017 with aortic valve replacement for history of rheumatic valvular heart disease, osteoarthritis, impaired fasting glucose, hard of hearing, BPH presents with increased weakness and fatigue that has been going on for months. Operations Boardman called patient to go to the emergency room for concern of significant anemia on labs History does not point to a particular source of bleeding however he Hemoccult positive in the ED. hemoglobin 7.9 on arrival. Patient on Coumadin with INR of 7.9. patient hemodynamically stable and continues to be in rate controlled A. fib. Troponin also elevated at at 0.276 likely demand ischemia no ST or T wave changes on EKG. BUN/creatinine elevated at 72/2.0. Acute anemia: Likely secondary to GI bleed, patient is on warfarin with INR of 7.9 Hemoglobin 7.9 Baseline hemoglobin around 10 and was 10.7 in January Hemoccult-positive INR 7.[address] without contrast pending ordered for concern of abdominal tenderness to rule out retroperitoneal bleed and other pathology No high-grade SBO. Fluid and gas filled bowel consider concerning for ileus versus enteritis versus partial SBO large stool burden Type and cross for 4 units Transfused 2 units now Trend hemoglobin every 6 hours On Protonix 40 mg IV twice daily ED doctor talk to Dr. Knight advised to provide only vitamin K and hold off on Kcentra for elevated INR of 7.9 Received vitamin K 10 mg IV x1 GI consulted Elevated troponin likely demand ischemia in the setting of acute anemia and VIDHYA Troponin 0.276 EKG rate [address] with no [address] or T wave changes QTC 477 Echo in August 2013: EF 60 to 65%, moderate con LVH, grade 2 diastolic dysfunction, porcine AV Trend troponin every 6 H x3 Monitor on telemetry Acute kidney injury BUN/creatinine 72/2.0 Baseline creatinine 1.2-1.3 GFR 30 Received 1 L normal saline bolus in the ED Continue normal saline at 100/h Chronic right-sided pleural effusion Chest x-ray concerning for cardiomegaly mild congestive failure and moderate right pleural effusion with associated atelectasis Patient on room air continue to monitor Constipation Some abdominal tenderness on exam CT abdomen with large stool burden MiraLAX and Colace PAF/HTN/HLD/diastolic CHF/CAD/CABG x1/porcine AV/rheumatic valvular heart disease Patient normotensive Hold home Lasix and spironolactone in the setting of VIDHYA Hold warfarin and aspirin in setting of acute bleed DM/impaired fasting glucose? Hold home metformin SSI Mood disorder Continue home sertraline BPH Continue finasteride Diet: N.p.o. for possible procedure DVT prophylaxis: SCD only chemical contraindicated in the setting of acute bleed Code: Full discussed with patient and family Disposition: PCU telemetry (2) Anemia: (3) Weakness: (4) Elevated INR: (5) Persistent atrial fibrillation: (6) Recurrent right pleural effusion: (7) Chronic diastolic heart failure: (8) CAD in [place] artery: (9) Rheumatic aortic stenosis: (10) Hernia: (11) HTN (hypertension): (12) HLD (hyperlipidemia): History of Present Illness Chief Complaint: Fatigue and weakness with decreased hemoglobin Primary Care Provider: Lulu Desir MD 83-year-old male with history of high blood pressure, hyperlipidemia, diastolic CHF, paroxysmal A. fib, coronary artery disease status post CABG x1 in December 2017 with aortic valve replacement for history of rheumatic valvular heart disease, osteoarthritis, impaired fasting glucose, hard of hearing, BPH presents with increased weakness and fatigue that has been going on for months. 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 Operations Boardman called patient to go to the emergency room for concern of significant anemia. Patient denies any hemoptysis hematemesis melena or hematochezia. Reports occasional abdominal tenderness related to hernia. Per patient has right inguinal hernia. denies any lightheadedness headache chest pain shortness of breath nausea vomiting diarrhea or constipation hematuria or dysuria at this time. No history of abdominal trauma. Patient often falls on buttocks. He now rides his walker and uses a wheelchair as he is too weak to walk. Social history: Denies alcohol use and has never smoked. No recreational drug use Surgical history: CABG x1 and aortic valve porcine in December 2017 and cholecystectomy Allergies Allergy/AdvReac Type Severity Reaction Status Date / Time No Known Allergies Allergy Unknown Verified 03/18/04 07:51 Home Medications Home Medications Medication Instructions Recorded Confirmed Type acetaminophen [Tylenol Arthritis 1,300 mg PO Q8H PRN 10/06/18 03/16/19 History Pain] amoxicillin 2,000 mg PO DIRECTED PRN 10/06/18 03/16/19 History aspirin [Aspir-81] 162 mg PO QPM 10/06/18 03/16/19 History finasteride 5 mg PO QAM 10/06/18 03/16/19 History nitroglycerin 0.4 mg SUBLINGUAL DIRECTED PRN 10/06/18 03/16/19 History sertraline 100 mg PO QPM 10/06/18 03/16/19 History furosemide 60 mg PO QPM 03/16/19 03/16/19 History furosemide 80 mg PO QAM 03/16/19 03/16/19 History metformin 500 mg PO BID 03/16/19 03/16/19 History potassium chloride 10 meq PO QAM 03/16/19 03/16/19 History spironolactone 12.5 mg PO QAM 03/16/19 03/16/19 History warfarin 2 mg PO WK 03/16/19 03/16/19 History warfarin 4 mg PO [id number] 03/16/19 03/16/19 History Past Med/Surg History Medical History CAD in [place] artery Chronic diastolic heart failure Dyslipidemia, goal LDL below 70 HTN (hypertension) Recurrent 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 Surgical History History of cholecystectomy S/P CABG x 1 S/P cholecystectomy Family History Other Family history non-contributory Social History Preferred Language: Central African Communication Ability: Effective Communication Ability Comment: forgetful Patient Services Specialist Required: No Beliefs That Will Affect Care: None Current Living Situation: Alone Feels Safe at Home: Yes Safety Concerns: Feels Safe At This Time Smoking Status: Never smoker Hx Alcohol Use: No Hx Substance Use: No Review of Systems Review of Systems: As per HPI Physical Exam Physical Exam: General: In NAD, appears significantly weak and pale CV: Regular rate irregular rhythm, no m/r/g PULM: CTAB diminished but equal breath sounds bilaterally ABDOMEN: +BS, non-distended, mildly tender to palpation in left upper quadrant, left lower quadrant and suprapubic regions LE: no calf TTP, 2+ LE edema, healing multiple abrasions Results & Data Vital Signs (Past 12 Hours) Vital Signs Temp Pulse Pulse Resp BP BP Pulse Ox 03/16/19 23:35 83 25 H 128/58 L 98 03/16/19 22:37 74 18 115/86 97 03/16/19 22:27 76 18 118/57 L 98 03/16/19 22:22 72 16 122/69 99 03/16/19 20:32 76 75 18 123/62 97 03/16/19 19:55 36.7 C 104 H 18 106/61 95 Laboratory Results Abnormal lab results 03/16/19 03/16/19 03/16/19 Range/Units 20:27 20:27 20:27 WBC 13.52 H (4.8-10.8) K/uL RBC 3.04 L (4.7-6.1) M/uL Hgb 7.9 L (14.0-18.0) g/dL Hct 25.1 L (42-52) % MCHC 31.5 L (32-36) g/dL RDW Std Deviation 50.1 H (36.4-46.3) fL RDW Coeff of [place] 16.7 H (11.5-14.5) % Plt Count 479 H (130-400) K/uL PT 70.1 H (9.0-12.0) Seconds INR 7.9 H* (0.9-1.1) APTT 50.2 H* (21.0-31.0) Seconds Sodium 134 L (136-145) mmol/L Chloride 92 L (98-107) mmol/L Carbon Dioxide 33 H (21-32) mmol/L BUN 72 H (7-18) mg/dl Creatinine 2.01 H (0.6-1.4) mg/dl BUN/Creatinine Ratio 36.0 H (10-20) Glucose 161 H (70-99) mg/dl Alkaline Phosphatase 133 H (45-117) U/L Troponin I 0.276 H* (0-0.045) ng/ml Total Protein 8.4 H (6.4-8.2) gm/dl Albumin 2.6 L (3.4-5.0) gm/dl Globulin 5.8 H (2.5-4.0) gm/dl Albumin/Globulin Ratio 0.4 L (0.9-2) POC Stool Occult Blood (Negative) 03/16/19 Range/Units 20:59 WBC (4.8-10.8) K/uL RBC (4.7-6.1) M/uL Hgb (14.0-18.0) g/dL Hct (42-52) % MCHC (32-36) g/dL RDW Std Deviation (36.4-46.3) fL RDW Coeff of [place] (11.5-14.5) % Plt Count (130-400) K/uL PT (9.0-12.0) Seconds INR (0.9-1.1) APTT (21.0-31.0) Seconds Sodium (136-145) mmol/L Chloride (98-107) mmol/L Carbon Dioxide (21-32) mmol/L BUN (7-18) mg/dl Creatinine (0.6-1.4) mg/dl BUN/Creatinine Ratio (10-20) Glucose (70-99) mg/dl Alkaline Phosphatase (45-117) U/L Troponin I (0-0.045) ng/ml Total Protein (6.4-8.2) gm/dl Albumin (3.4-5.0) gm/dl Globulin (2.5-4.0) gm/dl Albumin/Globulin Ratio (0.9-2) POC Stool Occult Blood Positive A (Negative) Diagnostic Findings SINGLE VIEW CHEST CLINICAL HISTORY: Generalized weakness. Dyspnea. FINDINGS: An AP, portable, upright chest radiograph is compared to study dated 10/06/2018 and correlated with chest CT dated 02/06/2018. The examination is degraded by portable technique and patient rotation. The patient is status post midline sternotomy. The heart is enlarged and there is atherosclerotic calcification of the thoracic aorta. There is prominence of the pulmonary vasculature. There is a moderate right pleural effusion with associated atelectasis, similar in appearance to previous. Scarring/atelectasis is noted at the left lung base. No pneumothorax is seen. The skeletal structures are osteopenic. There are healed left-sided rib fractures. Advanced arthritic change is seen in the shoulders and thoracic spine. IMPRESSION: 1. Cardiomegaly with prominence of the pulmonary vasculature. Correlate clinical ly for evidence of mild congestive failure. 2. A moderate right pleural effusion with associated atelectasis is similar to previous. Code Status & VTE Plan Code Status Full code per discussion with family and patient VTE Prophylaxis Plan VTE Prophylaxis will be ordered: Yes Supervising Physician Co-Signing Physician Notes Attending addendum: I have physically seen this patient, have supervised the medical residents activities, and agree with the H&P unless as otherwise noted. Assessment and Plan: Symptomatic anemia with hemoglobin of 7.9/heme positive stool/warfarin induced coagulopathy with supratherapeutic INR 7.9- Given vitamin K 10 mg IV in ED, will repeat INR in 6 hours. Transfusing 2 units PRBCs now, repeat H&H 1 hour later than every 6 hours intervals. Protonix 40 mg IV twice daily. N.p.o. Consult gastroenterology. NSTEMI- The patient will be admitted to telemetry for serial cardiac enzymes, serial EKG's, cardiac rhythm monitoring and a 2-D echocardiogram with Dopplers. Likely demand ischemia. Consult cardiology. Acute kidney injury- Creatinine 2.01 on admission, with baseline 1.2-1.3. Treatment as above, supply volume few transfusions of PRBCs. Patient did receive 1 L normal saline in ED. Follow serial BMP and magnesium levels. Remainder of orders notations as noted. (1) GI bleed GI bleed type/associated pathology: unspecified gastrointestinal hemorrhage type Qualified Code(s): K92.2 - Gastrointestinal hemorrhage, unspecified (2) Anemia Anemia type: unspecified type Qualified Code(s): D64.9 - Anemia, unspecified
[2019-03-17] MEDS ORDERED: POLYETHYLENE (MIRALAX) 17 GM PACK PO PRN (00:58)
[2019-03-17] MEDS ORDERED: SODIUM CHLORIDE 0.9% 1000ML 1,000 ML IV SCH (00:58)
[2019-03-17] MEDS ORDERED: ALUMINUM/MAGNESIUM SUSP 30 ML UDC PO PRN (00:58)
[2019-03-17] MEDS ORDERED: SODIUM CHLORIDE 0.9% 250 ML IV PRN ×2 (00:58→01:37)
[2019-03-17] MEDS ORDERED: ACETAMINOPHEN 325 MG TAB PO PRN (00:58)
[2019-03-17] MEDS ORDERED: ONDANSETRON INJ 2 MG/ML 2 ML VIAL IV PRN (00:58)
[2019-03-17] MEDS: PANTOprazole 40 MG in SYRINGE 0 ML IV SCH ×3 (01:21→20:30)
[2019-03-17 02:55] LABS: Appearance Urine Cloudy (Clear); Bacteria Urine Automated Negative (Negative); Bilirubin Urine Negative (Negative); Blood Urine 3+ (Negative); Color Urine Yellow; Epithelial Cell Urine Auto >30 /lpf (0-5); Glucose Urine UA Negative (Negative); Ketones Urine Negative (Negative); Leukocyte Esterase Urine Negative (Negative); Nitrite Urine Negative (Negative); Protein Urine 1+ (Negative); RBC Urine Automated >30 /hpf (0-4); Specific Gravity Urine 1.016 (1.000-1.030); Urobilinogen Urine Negative (Negative)
[2019-03-17 03:23] LABS: Cast Urine Automated >30 /lpf (0-5)
[2019-03-17 03:24] LABS: Amorphous Sediment Urine Present (None Prsent)
--- NOTE | 2019-03-17 04:24 | Gastrointestinal Consultation ---
Date of Consultation March 17, 2019 Assessment & Plan (1) Anemia: I would expect slow GI bleed to an Fe deficiency which is a microcytic anemia yet this anemia is normocytic. Check Fe sat, ferritin, B12, folate. Heme positive---agreee with PPI to cover for ASA induced PUD. If patient/family is agreeable to endoscopy and cardiology is ok with endoscopy given elevated troponins and INR is corrected then can do EGD on tuesday to start to see if he has PUD. Can get heme pos stool even with normal anatomy with very high INR as he has on admit, also. abd pain--none on exam. See what CT a/p shows elevated INR--per hospitalits elevated troponins--per cardiology VIDHYA--per hospitalist. Ok for clear liquid diet for now. History of Present Illness Reason for Consultation: GI bleeding Requesting Physician: Dr Roberta Adkins Attending Physician: Gerber Schroeder MD History of Present Illness CC per chart anemia HPI Pt hard of hearing so not sure if that or lack of cognition conributing but limited history from patient. Per chart patient week over last few months and pale last few day but no black nor bloody stools. Some lower abd pain. Do not see any scopes in [facility] EMR or this EMR in the past. He is on coumadin for afib and ASA for CAD. He was sent to ER for finding of anemia by cardiology office. Hgb 7.9 (nl MCV) vs 10.7 on 01/16/19. Heme pos brown stool on rectal in ER. INR 7.9. CXR cardiomegaly and pleural effusion. A/P CT results pending. Elevated troponins and VIDHYA noted as well. Allergies Allergy/AdvReac Type Severity Reaction Status Date / Time No Known Allergies Allergy Unknown Verified 03/18/04 07:51 Home Medications Home Medications Medication Instructions Recorded Confirmed Type acetaminophen [Tylenol Arthritis 1,300 mg PO Q8H PRN 10/06/18 03/16/19 History Pain] amoxicillin 2,000 mg PO DIRECTED PRN 10/06/18 03/16/19 History aspirin [Aspir-81] 162 mg PO QPM 10/06/18 03/16/19 History finasteride 5 mg PO QAM 10/06/18 03/16/19 History nitroglycerin 0.4 mg SUBLINGUAL DIRECTED PRN 10/06/18 03/16/19 History sertraline 100 mg PO QPM 10/06/18 03/16/19 History furosemide 60 mg PO QPM 03/16/19 03/16/19 History furosemide 80 mg PO QAM 03/16/19 03/16/19 History metformin 500 mg PO BID 03/16/19 03/16/19 History potassium chloride 10 meq PO QAM 03/16/19 03/16/19 History spironolactone 12.5 mg PO QAM 03/16/19 03/16/19 History warfarin 2 mg PO WK 03/16/19 03/16/19 History warfarin 4 mg PO 6XWK 03/16/19 03/16/19 History Patient History Medical History CAD in [place] artery Chronic diastolic heart failure Dyslipidemia, goal LDL below 70 HTN (hypertension) Recurrent 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 Surgical History History of cholecystectomy S/P CABG x 1 S/P cholecystectomy Family History Other Family history non-contributory Social History Preferred Language: Maori Communication Ability: Effective Communication Ability Comment: 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 Beliefs That Will Affect Care: None Current Living Situation: Alone Feels Safe at Home: Yes Safety Concerns: Feels Safe At This Time Smoking Status: Never smoker Hx Alcohol Use: No Hx Substance Use: No Review of Systems Review of Systems: Unobtainable due to cognitive status Physical Exam Constitutional: WD/WN, vitals as above Eyes: PERRL, conjunctivae normal, anicteric sclerae ENMT: external ear and nose normal, oropharynx normal Neck: normal visual inspection and trachea midline Respiratory: normal respiratory effort, lungs clear to auscultation Cardiovascular: Heart Sounds: normal, physiologic split S2 Gastrointestinal (Abdomen): normal bowel sounds, soft, nontender, no hepatosplenomegaly Musculoskeletal: no cyanosis or clubbing, extremities motor strength 5/5 Skin: normal turgor Neurologic: PERRL, EOMI, accommodation nl, no face palsy, no dysarthria Psychiatric: Orientation: alert Results & Data Vital Signs (Past 12 Hours) Vital Signs Temp Pulse Pulse Resp BP BP Pulse Ox 03/17/19 03:51 36.6 C 75 20 159/79 H 95 03/17/19 03:50 36.6 C 75 14 159/79 H 95 03/17/19 03:27 36.5 C 80 22 158/82 H 03/17/19 02:51 36.5 C 75 18 150/80 H 03/17/19 02:21 36.7 C 84 20 132/63 03/17/19 02:06 36.6 C 80 20 114/60 03/17/19 01:57 36.6 C 78 18 115/67 03/17/19 01:47 36.7 C 77 18 123/70 03/17/19 01:08 81 03/17/19 00:58 03/17/19 00:30 36.4 C L 76 18 133/64 95 03/17/19 00:16 82 22 128/75 95 03/16/19 23:35 80 83 27 H 128/58 L 128/58 L 92 03/16/19 23:02 72 24 126/73 96 03/16/19 22:37 74 18 115/86 97 03/16/19 22:27 76 18 118/57 L 98 03/16/19 22:22 72 16 122/69 99 03/16/19 20:32 76 75 18 123/62 97 03/16/19 19:55 36.7 C 104 H 18 106/61 95 Pulse Ox 03/17/19 03:51 03/17/19 03:50 03/17/19 03:27 03/17/19 02:51 03/17/19 02:21 03/17/19 02:06 03/17/19 01:57 03/17/19 01:47 03/17/19 01:08 03/17/19 00:58 95 03/17/19 00:30 03/17/19 00:16 03/16/19 23:35 03/16/19 23:02 03/16/19 22:37 03/16/19 22:27 03/16/19 22:22 03/16/19 20:32 03/16/19 19:55 (1) Anemia Anemia type: unspecified type Qualified Code(s): D64.9 - Anemia, unspecified
--- NOTE | 2019-03-17 07:36 | CT Scan Report ---
CT OF THE ABDOMEN AND PELVIS WITHOUT CONTRAST CLINICAL HISTORY: abdominal tenderness, concern for bleed, low hgb COMPARISON STUDY: CT of the abdomen and pelvis October 06, 2018. TECHNIQUE: Axial images of the abdomen and pelvis were obtained without IV contrast. Images were revi ewed in the axial, sagittal, and coronal planes. Automated exposure control was utilized for the vianey dy. A dose lowering technique was utilized adhering to the principles of ALARA. FINDINGS: Imaged portions of the lower chest demonstrate a loculated moderate size right pleural effu chely with pleural thickening. This contains several hyperdense foci that measure up to 9.4 x 6.8 cm. These hyperdense foci are new since CT of February 06, 2018. No pneumatosis, free air or portal venous g as is present. There is a large amount stool within the colon. Right hip arthroplasty is noted. Bowel loops within the right humeral hernia noted. There is no evidence for a bowel obstruction at this ti me. Sensitivity for detection mucosal lesions is diminished on this exam given CT technique. There is no hydronephrosis. Unenhanced images of the spleen, adrenal glands and pancreas are unremarkable. No hemoperitoneum is identified. No retroperitoneal hematoma is identified. IMPRESSION: 1. Complex loculated right pleural effusion with interval development of several hyperdense foci cons istent with hemorrhage. This represents a moderate hemothorax. 2. No hemoperitoneum. No retroperitoneal hematoma. 3. Right inguinal hernia which contains bowel loops. No evidence for a bowel obstruction at this time . Electronically signed by: Farhat Engle M.D. 03/17/2019 7:34 AM
[2019-03-17] MEDS: FINASTERIDE 5 MG TAB PO SCH (08:58)
[2019-03-17] MEDS: DOCUSATE SODIUM 100 MG CAP PO SCH ×2 (08:58→20:29)
[2019-03-17] MEDS: POLYETHYLENE (MIRALAX) 17 GM PACK PO SCH (08:58)
[2019-03-17 10:16] LABS: Eosinophils # (auto) 0.03 K/uL (0-0.5); Eosinophils % (auto) 0.2 %; Hematocrit (blood only) 31.8 % (42-52); Hemoglobin 10.1 g/dL (14.0-18.0); Immature Granulocytes # (auto) 0.03 K/uL (0.00-0.02); Immature Granulocytes % (auto) 0.2 %; Lymphocytes # (auto) 0.88 K/uL (1.2-3.4); Lymphocytes % (auto) 6.7 %; Mean Corpuscular Hgb Conc 31.8 g/dL (32-36); Mean Corpuscular Volume 82.4 fL (80-100); Mean Platelet Volume 10.3 fL (7.4-10.4); Monocytes # (auto) 0.47 K/uL (0.11-0.59); Monocytes % (auto) 3.6 %; Neutrophils % (auto) 89.3 %; Platelet Count 427 K/uL (130-400); RDW Coefficient of Variation 16.1 % (11.5-14.5); RDW Standard Deviation 47.8 fL (36.4-46.3); Red Blood Count 3.86 M/uL (4.7-6.1); White Blood Count 13.11 K/uL (4.8-10.8)
[2019-03-17 10:34] LABS: Partial Thromboplastin Ratio 1.3; Prothrombin Time 19.1 Seconds (9.0-12.0)
[2019-03-17 10:57] LABS: Albumin Level 2.4 gm/dl (3.4-5.0); BUN Creatinine Ratio 34.5 (10-20); Calcium 8.8 mg/dl (8.5-10.1); Creatinine Clr Calc Pharmacy 28.1 ml/min; Est GFR (African American) 37.2; Est GFR (Non-African American) 32.1; Potassium 3.4 mmol/L (3.5-5.1)
[2019-03-17 10:59] LABS: Folate (Folic Acid) 17.37 ng/ml (>5.38)
[2019-03-17 11:12] LABS: Albumin Globulin Ratio 0.4 (0.9-2); Bilirubin,Total 0.9 mg/dl (0.2-1); Ferritin 99.1 ng/ml (8-388); Globulin 5.9 gm/dl (2.5-4.0); Total Protein 8.3 gm/dl (6.4-8.2); Troponin I 0.265 ng/ml (0-0.045)
--- NOTE | 2019-03-17 12:45 | Consultation Report ---
DATE OF CONSULTATION: 03/17/2019 REASON FOR CONSULTATION: Right-sided hemothorax. HISTORY OF PRESENT ILLNESS: This is an 83-year-old male who I visited with in room 237 in the hospital. The patient appeared to be somewhat somnolent and confused and could not provide any meaningful history. I did discuss with the bedside nurse and notes that this appeared to be the patient's baseline since time of admission. He does not appear to be in any overt respiratory distress at this time, however. Due to the patient's mental status, he could not provide any history at the time of my exam. After discussion with the staff who helped attend to the patient, it appears that the patient was admitted due to increased weakness and fatigue that has been going on for several months. 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 There is no reported hemoptysis, hematemesis or melena. Again due to the patient's mental status, I could not obtain any meaningful history from the patient. The patient did have labs at the time of admission. CBC revealed a white blood cell count of 13.5. His hemoglobin and hematocrit are low at 7.9 and 25.1. He did have a platelet count noted to be 479,000. He was noted to have an INR of 7.9. Chemistry profile did show sodium was 134, potassium 3.8, his BUN and creatinine are 72 and 2.0. He did have elevated troponins noted at the time of admission with initial troponin of 0.27 and a followup troponin approximately 4 hours later of 0.229. The patient had imaging consisting of a chest x-ray that showed the patient did have a moderate right pleural effusion. This did appear similar to chest x-ray that was performed in September of 2018 and the patient also had a CT scan of the abdomen and pelvis that again showed a complex pleural effusion on the right side. That was felt to represent a hemothorax. No retroperitoneal hematoma or hemoperitoneum was noted. He was noted to have a right inguinal hernia with no evidence for bowel obstruction. The patient did not appear to be in any overt distress at the time of my exam. I did discuss with the bedside nurse, and due to his elevated INR, he did receive 10 mg of vitamin K to reverse this condition. It is also noteworthy to mention that the patient due to his significant anemia was evaluated by Dr. Spaulding of GI. It appears that GI would like the patient to be cleared by cardiology prior to any endoscopy being performed. PAST MEDICAL HISTORY: Includes the followin. Hypertension. 2. Hyperlipidemia. 3. Diastolic CHF. 4. History of paroxysmal atrial fibrillation. 5. Coronary artery disease. 6. History of rheumatic heart disease. 7. Osteoarthritis. 8. BPH. PAST SURGICAL HISTORY: Includes: 1. Coronary artery bypass grafting and aortic valve replacement. 2. Cholecystectomy. SOCIAL HISTORY: Unable to be obtained due to clinical status. FAMILY HISTORY: Unable to be obtained due to clinical status. REVIEW OF SYSTEMS: As described above, but otherwise unable to be obtained due to clinical status. PHYSICAL EXAMINATION: VITAL SIGNS: Currently, the patient is afebrile. Temperature 36.6, blood pressure is 149/78, pulse 77 and regular, respirations are 16 and unlabored, pulse ox 96% on room air. GENERAL: The patient is arousable, but is not conversing at this time. HEENT: His head does appear atraumatic, normocephalic. Eyes: Pupils equal, round and reactive to light and accommodation. Ears: Could not assess his auditory acuity as he is not conversing. His mouth has dry mucous membranes. NECK: Supple without tracheal shift or stridor. CARDIOVASCULAR: Regular rate and rhythm. LUNGS: Revealed markedly decreased breath sounds at the right base. He was not using accessory muscles to aid in respiration. ABDOMEN: Soft and nondistended. EXTREMITIES: Revealed no cyanosis, clubbing, or edema. He did have skin breakdown in numerous areas on his shins. NEUROLOGIC: Revealed that he was moving all 4 extremities, but it is difficult to get him to follow the commands appropriately. DIAGNOSTIC DATA: As noted above. IMPRESSION: An 83-year-old male with a right pleural effusion. PLAN: The patient's pleural effusion appears chronic. This effusion may be to coagulopathy. The medical service is in the process of correcting his coagulopathy and anemia. We will follow along with the patient while he is here in the hospital. Discussed case with Dr. Guerrero and he will see the patient tomorrow and determine if the patient will have a chest tube inserted or if he will require any surgical intervention, but any of these options will be placed on hold until his coagulopathy is corrected. We will continue to follow along while the patient is in the hospital.
--- NOTE | 2019-03-17 16:10 | Hospitalist Progress Note ---
Date of Service March 17, 2019 Assessment & Plan (1) Hemothorax: Right hemothorax noted on CT a/p on 03/16. - Discussed with thoracic surgery PA who had discussed with Dr. Guerrero - Will see tomorrow, but no urgent procedure needed as he is on room air. - Possible chest tube tomorrow (2) GI bleed: Source of bleeding was thought to be GI, but no major melenic or bloody BMs since admission. - Seen by GI on 03/16 - Continue PPI IV BID - Clear liquid diet - Possible EGD on Tuesday (3) Anemia: Baseline hgb ~10-11. Hgb was 8.0 on admission. Received 2 units PRBCs on 03/16 with bump to 10.3. Source of bleeding was thought to be GI, but no major melenic or bloody BMs since admission. B12 & folate both normal. Iron panel normal, but in the setting of getting recent transfusions, this may not be accurate. - Trend hgb - Plans as above (4) Elevated INR: INR was 7.9 on admission; down to 2.0 on 03/17 after vitamin K 10mg IV x 1 in the ED. - Hold all anticoagulation given his anemia (5) VIDHYA (acute kidney injury): Baseline Cr is ~1.3; eGFR of 50. On admission, VIDHYA with Cr up to 2.0. Presumed pre-renal; received IV fluids - Monitor Cr (6) Elevated troponin: Troponin was elevated to 0.23 on admission; stable at 0.26 & 0.27 on repeats. - This is not an acute thrombotic event; likely demand ischemia in the setting of anemia - Replete hgb > 8 for demand ischemia (7) Paroxysmal atrial fibrillation: EKG showed afib on admission with rate of 80. - Holding all anticoagulation for anemia and concern for bleeding (8) DVT prophylaxis: SCDs; no heparin for concern for hemothorax and GI bleed - Will restart anticoagulation as able given his bleeding Subjective Patient has no major complaints this morning. No chest pain, no shortness of breath. Reports no fevers/chills, chest pain, shortness of breath, abdominal pain, nausea, or vomiting. Review of Systems Review of Systems: All systems reviewed & are unremarkable except as noted in HPI & below Physical Exam Constitutional: WD/WN, vitals as above Eyes: EOM intact bilaterally; no conjunctival abnormality ENMT: external ear and nose normal, oropharynx normal Neck: trachea midline, no thyromegaly normal visual inspection Respiratory: normal respiratory effort, lungs clear to auscultation no respiratory distress Cardiovascular: RRR, no murmur, no edema Gastrointestinal (Abdomen): Inspection/Auscultation: abdomen normal to inspection; abdomen not distended Musculoskeletal: no cyanosis or clubbing, extremities motor strength 5/5 Skin: no rashes, warm and dry Neurologic: moves all extremities and awake Psychiatric: Orientation: alert, oriented to person and cooperative Results & Data Vital Signs (Past 12 Hours) Vital Signs Temp Pulse Pulse Pulse Resp BP BP 03/17/19 15:47 36.5 C 80 18 146/74 H 03/17/19 11:56 36.5 C 69 16 132/67 03/17/19 08:20 36.5 C 77 16 148/82 H 03/17/19 08:15 36.5 C 77 16 148/82 H 03/17/19 08:00 77 03/17/19 07:27 36.6 C 79 16 151/83 H 03/17/19 07:25 36.6 C 77 16 149/78 H 03/17/19 06:27 36.5 C 73 20 159/71 H 03/17/19 05:57 36.6 C 74 20 161/79 H 03/17/19 05:42 36.6 C 78 20 150/79 H 03/17/19 05:24 36.4 C L 77 18 145/77 H 03/17/19 05:06 36.5 C 76 20 152/52 H 03/17/19 04:19 36.5 C 77 18 163/73 H Pulse Ox 03/17/19 15:47 94 03/17/19 11:56 92 03/17/19 08:20 95 03/17/19 08:15 95 03/17/19 08:00 03/17/19 07:27 93 03/17/19 07:25 96 03/17/19 06:27 95 03/17/19 05:57 03/17/19 05:42 03/17/19 05:24 95 03/17/19 05:06 95 03/17/19 04:19 95 (1) Anemia Anemia type: unspecified type Qualified Code(s): D64.9 - Anemia, unspecified (2) GI bleed GI bleed type/associated pathology: unspecified gastrointestinal hemorrhage type Qualified Code(s): K92.2 - Gastrointestinal hemorrhage, unspecified
--- NOTE | 2019-03-17 17:59 | Cardiology Consultation ---
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 He has had a progressive decline in his activity tolerance and was referred for hospitalization after findings of worsening anemia. He has received 2 units of packed red blood cells and his hemoglobin has trended from 7.5 as outpatient to 9.8 on most recent measurement. He presented with coagulopathy and INR of 7.9. This is likely due to his acute illness and recent decrease oral intake in the setting of Coumadin therapy for his atrial fibrillation. The right pleural effusion has been noted previously, I am not certain if it is much change compared to prior outpatient chest x-rays. EKG reveals rate controlled atrial fibrillation with possible inferior infarct pattern, unchanged compared to September 2018. Patient has a mild elevation his troponin. I do not think this is due to an acute coronary syndrome but is likely due to his underlying LVH and myocardial strain. Per review of his outpatient records, referral to palliative care has been discussed. Per my discussion with the spouse, she seems to think that the patient has progressed to the point her goals of care need to be discussed. At present, continue supportive care. I will transfuse him to support his blood pressure, but not farrell to proceed with further invasive procedures. History of Present Illness Attending Physician: Wilder Stevenson MD History of Present Illness Alonzo Wolfe is an 83 year old male seen in cardiology consultation per the request of Dr Adkins for evaluation given findings of elevated troponin I this patient with a complex past cardiac history. Patient is lethargic and minimally responsive. History is obtained from his records and from interview with his spouse. The patient has had progressive decline over the last few months and is been worse over the last few days. He is needed assistance with minimal activities. He was seen as an acute visit in cardiology clinic on 03/16/2019 and was found to have progressive anemia with hemoglobin of 7.5 compared to hemoglobin of 10.7 on 01/16/2019. Acute kidney injury was also noted creatinine of 1.9 as compared to his baseline of 1.23 in January. He has a chronic right pleural effusion that was graded as being small on chest x-ray as an outpatient in 2015 and moderate in 2017, 2018, and on the present est x-ray/CT. Past Medical/Surgical History: 1.Rheumatic fever at the age of 9. 2.Rheumatic valvular disease, severe aortic stenosis status post December 2007 aortic valve replacement with a 25-mm stentless porcine valve using a rotated subcoronary implant. 3.Atherosclerotic coronary artery disease status post CABG x 1 using a SVG to the obtuse marginal. 4.Diastolic congestive heart failure. 5.Severe pulmonary hypertension. 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 8.Hypertension. 9.Hyperlipidemia. 10.Right orchiectomy by Dr. Og. 11.Right hip replacement , October 2011. 12.Cholecystectomy. Allergies Allergy/AdvReac Type Severity Reaction Status Date / Time No Known Allergies Allergy Unknown Verified 03/18/04 07:51 Home Medications Home Medications Medication Instructions Recorded Confirmed Type acetaminophen [Tylenol Arthritis 1,300 mg PO Q8H PRN 10/06/18 03/16/19 History Pain] amoxicillin 2,000 mg PO DIRECTED PRN 10/06/18 03/16/19 History aspirin [Aspir-81] 162 mg PO QPM 10/06/18 03/16/19 History finasteride 5 mg PO QAM 10/06/18 03/16/19 History nitroglycerin 0.4 mg SUBLINGUAL DIRECTED PRN 10/06/18 03/16/19 History sertraline 100 mg PO QPM 10/06/18 03/16/19 History furosemide 60 mg PO QPM 03/16/19 03/16/19 History furosemide 80 mg PO QAM 03/16/19 03/16/19 History metformin 500 mg PO BID 03/16/19 03/16/19 History potassium chloride 10 meq PO QAM 03/16/19 03/16/19 History spironolactone 12.5 mg PO QAM 03/16/19 03/16/19 History warfarin 2 mg PO WK 03/16/19 03/16/19 History warfarin 4 mg PO [id number] 03/16/19 03/16/19 History Patient History Medical History CAD in [place] artery Chronic diastolic heart failure Dyslipidemia, goal LDL below 70 HTN (hypertension) Recurrent 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 Surgical History History of cholecystectomy S/P CABG x 1 S/P cholecystectomy Family History Other Family history non-contributory Social History Preferred Language: [place] Citizen Communication Ability: Effective Communication Ability Comment: forgetful [employer]r Required: No Beliefs That Will Affect Care: None Current Living Situation: Alone Feels Safe at Home: Yes Safety Concerns: Feels Safe At This Time Smoking Status: Never smoker Hx Alcohol Use: No Hx Substance Use: No Results & Data Vital Signs (Past 12 Hours) Vital Signs Temp Pulse Pulse Pulse Resp BP BP 03/17/19 16:00 69 03/17/19 15:47 36.5 C 80 18 146/74 H 03/17/19 11:56 36.5 C 69 16 132/67 03/17/19 08:20 36.5 C 77 16 148/82 H 03/17/19 08:15 36.5 C 77 16 148/82 H 03/17/19 08:00 77 03/17/19 07:27 36.6 C 79 16 151/83 H 03/17/19 07:25 36.6 C 77 16 149/78 H 03/17/19 06:27 36.5 C 73 20 159/71 H 03/17/19 05:57 36.6 C 74 20 161/79 H Pulse Ox 03/17/19 16:00 03/17/19 15:47 94 03/17/19 11:56 92 03/17/19 08:20 95 03/17/19 08:15 95 03/17/19 08:00 03/17/19 07:27 93 03/17/19 07:25 96 03/17/19 06:27 95 03/17/19 05:57 Laboratory Results Cardiac Enzymes 03/16/19 03/17/19 03/17/19 Range/Units 20:27 02:04 09:44 AST 26 26 (15-37) U/L Troponin I 0.276 H* 0.229 H* 0.265 H* (0-0.045) ng/ml 03/17/19 Range/Units 14:16 AST (15-37) U/L Troponin I 0.275 H* (0-0.045) ng/ml Coagulation 03/16/19 03/17/19 Range/Units 20:27 09:44 PT 70.1 H 19.1 H (9.0-12.0) Seconds APTT 50.2 H* 35.0 H (21.0-31.0) Seconds CBC 03/16/19 03/17/19 03/17/19 Range/Units 20:27 09:44 09:44 WBC 13.52 H 13.11 H (4.8-10.8) K/uL RBC 3.04 L 3.86 L (4.7-6.1) M/uL Hgb 7.9 L 10.1 L 10.3 L (14.0-18.0) g/dL Hct 25.1 L 31.8 L (42-52) % Plt Count 479 H 427 H (130-400) K/uL Neut # (Auto) 11.70 H (1.4-6.5) K/uL Lymph # (Auto) 0.88 L (1.2-3.4) K/uL [place] # (Auto) 0.47 (0.11-0.59) K/uL Eos # (Auto) 0.03 (0-0.5) K/uL Baso # (Auto) 0.00 (0-0.2) K/uL 03/17/19 Range/Units 14:16 WBC (4.8-10.8) K/uL RBC (4.7-6.1) M/uL Hgb 9.8 L (14.0-18.0) g/dL Hct (42-52) % Plt Count (130-400) K/uL Neut # (Auto) (1.4-6.5) K/uL Lymph # (Auto) (1.2-3.4) K/uL [place] # (Auto) (0.11-0.59) K/uL Eos # (Auto) (0-0.5) K/uL Baso # (Auto) (0-0.2) K/uL Comprehensive Metabolic Panel 03/16/19 03/17/19 Range/Units 20:27 09:44 Sodium 134 L 135 L (136-145) mmol/L Potassium 3.8 3.4 L (3.5-5.1) mmol/L Chloride 92 L 95 L (98-107) mmol/L Carbon Dioxide 33 H 32 (21-32) mmol/L BUN 72 H 66 H (7-18) mg/dl Creatinine 2.01 H 1.90 H (0.6-1.4) mg/dl Glucose 161 H 171 H (70-99) mg/dl Calcium 9.3 8.8 (8.5-10.1) mg/dl AST 26 26 (15-37) U/L ALT 22 22 (12-78) U/L Alkaline Phosphatase 133 H 135 H (45-117) U/L Total Protein 8.4 H 8.3 H (6.4-8.2) gm/dl Albumin 2.6 L 2.4 L (3.4-5.0) gm/dl Intake and Output 03/17/19 03/17/19 03/17/19 06:59 14:59 22:59 Intake Total 310 / 963 745 / 745 Output Total 500 / 500 700 / 700 Balance -190 / 463 45 / 45 Intake: Oral 435 / 435 Intake (Blood Product) Amt 310 / 310 310 / 310 Packed Cells, Leukoreduced 0 / 0 310 / 310 Unit [id number] Packed Cells, Leukoreduced 310 / 310 Unit [id number] Output: Urine Amount (Catheter) 500 / 500 700 / 700 Gayle/Indwelling 500 / 500 700 / 700 Other: Other Intake Source npo Weight 66.3 kg Diagnostic Findings Summary of transthoracic echocardiogram performed 03/14/2018 which had been interpreted by the undersigned as an outpatient at that time. The LV wall thickness is severely increased (concentric). The left ventricular cavity size is small due to the severe concentric left ventricular hypertrophy. The qualitative LV ejection fraction is 55-59% (normal). The left atrium is severely enlarged. The right atrium is moderately enlarged. The left ventricular diastolic function is severely abnormal (grade III). There is an aortic valve bioprosthetic present. Aortic valve prosthesis stenosis is absent. Significant aortic valve prosthesis regurgitation is absent. Mild mitral regurgitation is present. Moderate tricuspid regurgitation is present. Severe pulmonary hypertension is present. The estimated pulmonary artery systolic pressure is 7078mm Hg. Compared to the prior study dated 09/07/2017, there has been no significant interval change. 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
[2019-03-17] MEDS ORDERED: POTASSIUM CHLORIDE 10 MEQ TABCR PO STA (18:02)
[2019-03-17] MEDS: SERTRALINE HCL 100 MG TABLET PO SCH (20:30)
[2019-03-18 06:12] LABS: Hematocrit (blood only) 33.3 % (42-52); Hemoglobin 10.6 g/dL (14.0-18.0); Mean Corpuscular Hgb Conc 31.8 g/dL (32-36); Mean Corpuscular Volume 82.8 fL (80-100); Mean Platelet Volume 10.1 fL (7.4-10.4); Platelet Count 387 K/uL (130-400); RDW Coefficient of Variation 16.3 % (11.5-14.5); Red Blood Count 4.02 M/uL (4.7-6.1); White Blood Count 13.66 K/uL (4.8-10.8)
[2019-03-18 06:20] LABS: INR 1.5 (0.9-1.1)
[2019-03-18 06:50] LABS: Calcium 9.1 mg/dl (8.5-10.1); Est GFR (African American) 46.9; Est GFR (Non-African American) 40.4; Magnesium 1.8 mg/dl (1.8-2.4); Potassium 3.5 mmol/L (3.5-5.1)
[2019-03-18] MEDS: PANTOprazole 40 MG in SYRINGE 0 ML IV SCH (08:26)
[2019-03-18] MEDS: FINASTERIDE 5 MG TAB PO SCH (08:27)
[2019-03-18] MEDS: DOCUSATE SODIUM 100 MG CAP PO SCH ×2 (08:27→20:44)
[2019-03-18] MEDS: POLYETHYLENE (MIRALAX) 17 GM PACK PO SCH (11:08)
--- NOTE | 2019-03-18 14:04 | Hospitalist Progress Note ---
Date of Service March 18, 2019 Assessment & Plan (1) Hemothorax: Right hemothorax noted on CT a/p on 03/16. - Discussed with Dr. Guerrero - Does not feel this is an acute bleed. Given his significant comorbidities, he does not feel surgical intervention is warranted or will benefit the patient. - Conservative care (2) GI bleed: Source of bleeding was thought to be GI, but no major melenic or bloody BMs since admission. - Seen by GI on 03/16 - Continue PPI IV BID - Clear liquid diet - Possible EGD on Tuesday (3) Anemia: Baseline hgb ~10-11. Hgb was 8.0 on admission. Received 2 units PRBCs on 03/16 with bump to 10.3. Source of bleeding was thought to be GI, but no major melenic or bloody BMs since admission. B12 & folate both normal. Iron panel normal, but in the setting of getting recent transfusions, this may not be accurate. - On 03/18, hgb stable - Plans as above (4) Elevated INR: INR was 7.9 on admission; down to 2.0 on 03/17 after vitamin K 10mg IV x 1 in the ED. - Hold all anticoagulation given his anemia (5) VIDHYA (acute kidney injury): Baseline Cr is ~1.3; eGFR of 50. On admission, VIDHYA with Cr up to 2.0. Presumed pre-renal; received IV fluids - On 03/18, Cr down to 1.6 - Monitor Cr (6) Elevated troponin: Troponin was elevated to 0.23 on admission; stable at 0.26 & 0.27 on repeats. - This is not an acute thrombotic event; likely demand ischemia in the setting of anemia - Replete hgb > 8 for demand ischemia (7) Paroxysmal atrial fibrillation: EKG showed afib on admission with rate of 80. - Holding all anticoagulation for anemia and concern for bleeding (8) DVT prophylaxis: SCDs; no heparin for concern for hemothorax and GI bleed Dispo: Follow up with GI. If hgb stable, GI may not want EGD after all. Palliative care consult & PT/OT ordered. Subjective Feels well. Does not want to be in the hospital. Reports no fevers/chills, chest pain, shortness of breath, abdominal pain, nausea, or vomiting. Review of Systems Review of Systems: All systems reviewed & are unremarkable except as noted in HPI & below Physical Exam Constitutional: WD/WN, vitals as above Eyes: EOM intact bilaterally; no conjunctival abnormality ENMT: external ear and nose normal, oropharynx normal Neck: trachea midline, no thyromegaly normal visual inspection Respiratory: normal respiratory effort, lungs clear to auscultation no respiratory distress Cardiovascular: RRR, no murmur, no edema Gastrointestinal (Abdomen): Inspection/Auscultation: abdomen normal to inspection; abdomen not distended Musculoskeletal: no cyanosis or clubbing, extremities motor strength 5/5 Skin: no rashes, warm and dry Neurologic: moves all extremities and awake Psychiatric: Orientation: alert, oriented to person and cooperative Results & Data Vital Signs (Past 12 Hours) Vital Signs Temp Pulse Pulse Resp BP Pulse Ox 03/18/19 11:08 36.5 C 72 18 157/72 H 94 03/18/19 08:00 79 03/18/19 03:52 36.5 C 78 18 166/77 H 93 (1) GI bleed GI bleed type/associated pathology: unspecified gastrointestinal hemorrhage type Qualified Code(s): K92.2 - Gastrointestinal hemorrhage, unspecified (2) Anemia Anemia type: unspecified type Qualified Code(s): D64.9 - Anemia, unspecified
--- NOTE | 2019-03-18 15:52 | Cardiology Progress Note ---
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 Patient pleural effusion has had a chronic reaccumulation with prior thoracentesis performed in the past. Based on outpatient chest x-ray images dating back to March 2018 in April,, diffusion was present at that time and was graded to be at least moderate in size in April 2018. Per review of notes have been seen as an outpatient in cardiology clinic in 2018. Echocardiogram suggested infiltrative cardiomyopathy. And patient had noted weight loss. Further evaluation including serum electrophoresis was recommended that time and ordered but the patient declined. I discussed with the patient's family that I feel his prognosis is poor. Referral had been placed for outpatient hospice on 03/16/2019, and the patient spouse tells me they have a tentative appointment for an intake appointment with [facility] palliative care services arranged next week. We will coordinate with the primary service. Not certain if the inpatient palliative care service would have anything to offer in terms of helping transition to patient. Likely plan on resuming his furosemide tomorrow. Subjective Chief complaint: Follow-up generalized weakness Subjective: Patient sitting in the bedside chair. More alert and conversant today, but does not provide adequate history. Patient's spouse and his son are at the bedside. Telemetry reveals rate controlled atrial fibrillation at 76 b pm. Physical Exam Physical Exam: General: Chronically ill in appearance without acute distress Eyes: conjunctiva are pink and non-injected, sclera clear Neck: Mild jugular venous distention Chest: normal shape and normal respiratory effort Lungs: Decreased breath sounds at the right base and midlung field Cardiac Exam: -Irregular rhythm, no murmurs Abdomen: abdomen soft, non-tender, no abnormal masses and no hepatosplenomegaly Extremities: no edema and no cyanosis Neuro: Answers questions minimally, follows commands Results & Data Vital Signs (Past 12 Hours) Vital Signs Temp Pulse Pulse Resp BP Pulse Ox 03/18/19 15:20 36.6 C 74 16 138/76 92 03/18/19 11:08 36.5 C 72 18 157/72 H 94 03/18/19 08:00 79 03/18/19 03:52 36.5 C 78 18 166/77 H 93 Laboratory Results Coagulation 03/18/19 Range/Units 05:56 PT 15.0 H (9.0-12.0) Seconds CBC 03/18/19 Range/Units 05:56 WBC 13.66 H (4.8-10.8) K/uL RBC 4.02 L (4.7-6.1) M/uL Hgb 10.6 L (14.0-18.0) g/dL Hct 33.3 L (42-52) % Plt Count 387 (130-400) K/uL Comprehensive Metabolic Panel 03/18/19 Range/Units 05:56 Sodium 137 (136-145) mmol/L Potassium 3.5 (3.5-5.1) mmol/L Chloride 96 L (98-107) mmol/L Carbon Dioxide 34 H (21-32) mmol/L BUN 50 H (7-18) mg/dl Creatinine 1.57 H D (0.6-1.4) mg/dl Glucose 183 H (70-99) mg/dl Calcium 9.1 (8.5-10.1) mg/dl Intake and Output 03/18/19 03/18/19 03/18/19 06:59 14:59 22:59 Intake Total 800 / 2060 320 / 320 Output Total 600 / 1650 500 / 500 Balance 200 / 410 -180 / -180 Intake: Oral 800 / 1750 320 / 320 Output: Urine Amount (Catheter) 600 / 1650 500 / 500 Gayle/Indwelling 600 / 1650 500 / 500 Diagnostic Findings INR today 1.5 down from 2 yesterday, and down from 7.9 on admission. Creatinine 1.57, down from 2.01 on admission.
--- NOTE | 2019-03-18 16:56 | Gastroenterology Progress Note ---
Date of Service March 18, 2019 Assessment & Plan (1) Anemia: Fe sat lown c/w Fe def, B12, ferrtin, and folate normal. Heme positive---agreee with PPI to cover for ASA induced PUD. Per cardiology the patient has poor prognosis and family seeking palliative care options. In light of that and in the absence of brisk bleeding I would treat with PPI and no pursue and endoscopic testing. Discussed with and she is agreeable--no scopes. abd pain--none on exam. See what CT a/p shows elevated INR--resolved elevated troponins--per cardiology VIDHYA--per hospitalist. Solid diet as tolerated. Will sign off. Please call for further questions. Subjective cc f/u anemia, heme pos stool HPI with patient for H and P. Per nurse patient had large schmid stool yesterday am and no stools today. Pt very hard of hearing and difficult to get any history from him. Review of Systems Review of Systems: unable to obtain secondary to hard of hearing. Physical Exam Respiratory: normal respiratory effort, lungs clear to auscultation Cardiovascular: Heart Sounds: normal, physiologic split S2 Gastrointestinal (Abdomen): normal bowel sounds, soft, nontender, no hepatosplenomegaly Psychiatric: Orientation: alert Results & Data Vital Signs (Past 12 Hours) Vital Signs Temp Pulse Pulse Resp BP Pulse Ox 03/18/19 15:20 36.6 C 74 16 138/76 92 03/18/19 11:08 36.5 C 72 18 157/72 H 94 03/18/19 08:00 79 (1) Anemia Anemia type: unspecified type Qualified Code(s): D64.9 - Anemia, unspecified
[2019-03-18] MEDS: PANTOprazole 40 MG TAB PO SCH (20:44)
[2019-03-18] MEDS: SERTRALINE HCL 100 MG TABLET PO SCH (20:45)
--- NOTE | 2019-03-18 22:41 | Consultation Report ---
DATE OF CONSULTATION: 03/18/2019 HISTORY OF PRESENT ILLNESS: This 83-year-old man is much more oriented today, although still a bit confused. He remembered me, however. I saw this patient well over a year ago in preparation for a thoracoscopy with a decortication. 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 It was felt that this was due to the surgery. He was worked up by Dr. Perfecto Eckert from Pulmonary at that time and underwent a thoracentesis for 1500 mL. I reviewed the patient's CT scan and quite frankly his CT scan has not changed much since September of 2018. The patient was lost to follow up with me and we had originally scheduled him for surgery a year ago but due to multiple medical problems this was not done. The patient is now anemic; however, initially I felt in looking at the films that he may have bled into his chest, but this is not the case. The patient has had this chronically. He has also had some changes in his heart. I discussed this case with Dr. Ernesto Vega today. The patient may well have amyloidosis. Whatever his underlying cardiac disease the patient is deteriorating. He looks much worse to me than when I last saw him. In addition, he would not tolerate any type of surgical procedure. Having said that, I am not even sure that I would tap this. He is on room air with 94% saturations. At this point, I would like to see if he improved a bit, but I do not think I would be offering him a thoracentesis. In fact, I do not think I would do anything intervention-fuentes. We will see how he looks in the next day or so. [id number]
[2019-03-19 06:30] LABS: Mean Corpuscular Hgb Conc 31.3 g/dL (32-36); Mean Corpuscular Volume 83.1 fL (80-100); Mean Platelet Volume 10.2 fL (7.4-10.4); Platelet Count 355 K/uL (130-400); RDW Coefficient of Variation 16.4 % (11.5-14.5); RDW Standard Deviation 49.3 fL (36.4-46.3); Red Blood Count 3.85 M/uL (4.7-6.1); White Blood Count 15.22 K/uL (4.8-10.8)
[2019-03-19 07:06] LABS: BUN Creatinine Ratio 28.4 (10-20); Calcium 8.6 mg/dl (8.5-10.1); Creatinine Clr Calc Pharmacy 41.7 ml/min; Est GFR (Non-African American) 51.8; Magnesium 1.7 mg/dl (1.8-2.4); Potassium 3.1 mmol/L (3.5-5.1)
[2019-03-19] MEDS: PANTOprazole 40 MG TAB PO SCH ×2 (08:14→20:56)
[2019-03-19] MEDS: FINASTERIDE 5 MG TAB PO SCH (08:14)
[2019-03-19] MEDS: POLYETHYLENE (MIRALAX) 17 GM PACK PO SCH (08:16)
--- NOTE | 2019-03-19 10:14 | Palliative Care Consultation ---
Date of Consultation March 19, 2019 Assessment & Plan (1) Palliative care encounter: This is an 83-year-old male who presented to the hospital by direction of his rehab technician as his bloodwork indicated severe anemia. Upon arrival, his Hgb was 7.9 and he was transfused 2UPRBC. Additionally, a R hemothorax was discovered on CT scan and pulmonary was consulted and conservative measures were recommended. Per patient, no hemoptysis, hematochezia, melena was noted prior to admission. 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 -I met with patient initially, and then with patient , Leesa and son, Damien, at the bedside to discuss goals of care. -Earlier, patient family has met with GI and declined any invasive EGD for further diagnostic testing. Pt will continue with PPI. -Per patient family, he has progressively become more weak over the past few months and they would like to discuss patient going home with hospice. Prior to my entering the room, case management was in with some hospice discussion as well as prompted by the family. -The family has stated that pt can not care for the patient fully. They are aware that they may need to supplement some private care giving options. -There are 4 adult children, two are local and able to help, but do also work FT too. -We did complete a POLST form indicating DNR, comfort measures upon discharge, no artificial nutrition/hydration, and a trial of antibiotics in the event of an infection. -If patient is to return home with hospice, they choice [facility] and would like a referral placed. -I did ask if the patients was ok with her dying at home and she stated 'yes' -I also explained the logistics of administering medications to the patient and having hospice available on phone until they arrive and she stated yes - the patients son agrees as well. -The patient does have a gray catheter in place which I think would be fuentes to leave in place upon discharge as the patient has been incontinent. -PPS: 30% (2) Anemia: Hgb 7.9 on arrival and now been stablized at 10.0 patient family has declined EGD Remains on a PPI Anemia type: unspecified type Qualified Code(s): D64.9 - Anemia, unspecified (3) Weakness: Increasing weakness over past few months. I did help patient to bedside chair and he was a 1-2 assist, but his legs were very weak although he was able to move his legs to the side of the bed independently. Supervising Physician Co-Signing Physician Notes Late entry for exam performed on 03/19 Chart reviewed , pt seen and examined, at bedside PE: pt asleep, arousable, NAD Pt denies pain or discomfort HEENT: EOMI Resp: unlabored, clear anteriorly CV: irreg Abd: Soft, NT to light palpation Neuro: oriented to person Agree with above note, asssessmemt and plan as per CHRISTELLE Mace to meet with family later this afternoon on 03/19. Will cont to follow and assist family with medical decision making History of Present Illness Reason for Consultation: Dr Gonzalez Requesting Physician: Goals of Care Attending Physician: Trenton Gonzalez History of Present Illness This is an 83-year-old male who presented to the hospital by direction of his rehab technician as his bloodwork indicated severe anemia. Upon arrival, his Hgb was 7.9 and he was transfused 2UPRBC. Additionally, a R hemothorax was discovered on CT scan and pulmonary was consulted and conservative measures were recommended. Per patient, no hemoptysis, hematochezia, melena was noted prior to admission. 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 Palliative Care was consulted to discuss goals of care. Please see assessment and plan for further details. Thank you kindly for involving palliative care with this patient. We will follow accordingly and continue to assist with goals. Allergies Allergy/AdvReac Type Severity Reaction Status Date / Time No Known Allergies Allergy Unknown Verified 03/18/04 07:51 Home Medications Home Medications Medication Instructions Recorded Confirmed Type acetaminophen [Tylenol Arthritis 1,300 mg PO Q8H PRN 10/06/18 03/16/19 History Pain] amoxicillin 2,000 mg PO DIRECTED PRN 10/06/18 03/16/19 History aspirin [Aspir-81] 162 mg PO QPM 10/06/18 03/16/19 History finasteride 5 mg PO QAM 10/06/18 03/16/19 History nitroglycerin 0.4 mg SUBLINGUAL DIRECTED PRN 10/06/18 03/16/19 History sertraline 100 mg PO QPM 10/06/18 03/16/19 History furosemide 60 mg PO QPM 03/16/19 03/16/19 History furosemide 80 mg PO QAM 03/16/19 03/16/19 History metformin 500 mg PO BID 03/16/19 03/16/19 History potassium chloride 10 meq PO QAM 03/16/19 03/16/19 History spironolactone 12.5 mg PO QAM 03/16/19 03/16/19 History warfarin 2 mg PO WK 03/16/19 03/16/19 History warfarin 4 mg PO 6XWK 03/16/19 03/16/19 History Patient History Medical History CAD in [place] artery Chronic diastolic heart failure Dyslipidemia, goal LDL below 70 HTN (hypertension) Recurrent 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 Surgical History History of cholecystectomy S/P CABG x 1 S/P cholecystectomy Family History Other Family history non-contributory Social History Preferred Language: Guyanese Communication Ability: Effective Communication Ability Comment: forgetful Store Keeper Required: No Beliefs That Will Affect Care: None marital status: Current Living Situation: Alone Feels Safe at Home: Yes Safety Concerns: Feels Safe At This Time Smoking Status: Never smoker Hx Alcohol Use: No Hx Substance Use: No Review of Systems Review of Systems: General: Patient denies pain HEENT: Pt denies ALDRIDGE, dizziness, visual changes CV: Pt denies CP, palpitations Resp: Patient denies SOB GI: Pt denies abdominal pain, N/V/D. Pt states his appetite is less, but likes to eat : Pt denies urinary changes Skin: Pt denies skin changes Physical Exam Physical Exam: Pt sitting up in the bed initially and then did transfer 1 assist pivoting to the bedside chair Constitutional: + ill appearing and + lethargic Eyes: PERRL, conjunctivae normal, anicteric sclerae ENMT: external ear and nose normal, oropharynx normal Neck: trachea midline, no thyromegaly Respiratory: normal respiratory effort (shallow breaths) Auscultation: + diminished lung sounds Cardiovascular: Rate/Rhythm: + irregularly irregular Extremities: normal capillary refill Gastrointestinal (Abdomen): normal bowel sounds, soft, nontender, no hepatosplenomegaly Skin: no rashes, warm and dry normal turgor and + pallor (/clifford) Psychiatric: Orientation: alert, oriented to person, oriented to place and cooperative Eye Contact: + fair eye contact Genitourinary: gray catheter in place with madina urine Results & Data Vital Signs (Past 12 Hours) Vital Signs Temp Pulse Pulse Resp BP Pulse Ox Pulse Ox 03/19/19 08:00 83 97 03/19/19 07:50 36.9 C 83 19 134/69 97 03/19/19 03:52 36.7 C 82 16 152/85 H 96 03/18/19 23:36 78 03/18/19 23:34 36.6 C 76 18 151/73 H 98 Time Spent Midlevel Total time spent 100 minutes with > 50% of that time spent reviewing the chart, assessing the patient, discussing goals of care and completing a POLST form with the patient.
[2019-03-19] MEDS: DOCUSATE SODIUM 100 MG CAP PO SCH ×2 (10:16→20:56)
--- NOTE | 2019-03-19 12:51 | Cardiology Progress Note ---
Date of Service March 19, 2019 Assessment & Plan (1) Chronic diastolic heart failure: (2) Recurrent right pleural effusion: Patient with long-standing history of progressive decline as an outpatient despite multiple maneuvers in terms of escalating his diuretic therapy. Transition to palliative care approach has been discussed with him at his recent outpatient cardiology visit, and patient and family seemed agreeable to this approach when I discussed it with them yesterday. Agree with palliative care consultation. Family meeting planned later today. Potassium 3.1 this morning. I will order replacement. Subjective Chief complaint: Follow-up generalized weakness Subjective: Patient sitting the bedside chair. No subjective complaints at present. He is eager for his spouse's arrival. Telemetry reveals ongoing rate controlled atrial fibrillation in the range of 70 bpm. Physical Exam Constitutional: + ill appearing (Chronically ill in appearance without acute distress) Respiratory: Auscultation: + diminished lung sounds (Decreased breath sounds in the right lung field at the base and mid levels); no crackles, no rales and no rhonchi Cardiovascular: Rate/Rhythm: + irregularly irregular Heart Sounds: + murmur (1/6 systolic murmur) Extremities: no edema Results & Data Vital Signs (Past 12 Hours) Vital Signs Temp Pulse Pulse Resp BP Pulse Ox Pulse Ox 03/19/19 11:50 36.5 C 76 19 128/75 93 03/19/19 08:00 83 97 03/19/19 07:50 36.9 C 83 19 134/69 97 03/19/19 03:52 36.7 C 82 16 152/85 H 96
[2019-03-19] MEDS ORDERED: POTASSIUM CHLORIDE 20 MEQ TABCR PO STA (12:59)
[2019-03-19] MEDS: POTASSIUM CHLORIDE 20 MEQ TABCR PO SCH (18:07)
[2019-03-19] MEDS: SERTRALINE HCL 100 MG TABLET PO SCH (20:56)
--- NOTE | 2019-03-19 23:35 | Hospitalist Progress Note ---
Date of Service March 19, 2019 Assessment & Plan (1) Hemothorax: Right hemothorax noted on CT a/p on 03/16. - Discussed with Dr. Guerrero - Does not feel this is an acute bleed. Given his significant comorbidities, he does not feel surgical intervention is warranted or will benefit the patient. - Conservative care (2) GI bleed: Source of bleeding was thought to be GI, but no major melenic or bloody BMs since admission. - Seen by GI on 03/16 - Continue PPI IV BID - Clear liquid diet (3) Anemia: Baseline hgb ~10-11. Hgb was 8.0 on admission. Received 2 units PRBCs on 03/16 with bump to 10.3. Source of bleeding was thought to be GI, but no major melenic or bloody BMs since admission. B12 & folate both normal. Iron panel normal, but in the setting of getting recent transfusions, this may not be accurate. - On 03/19, hgb stable - Plans as above (4) Elevated INR: INR was 7.9 on admission; down to 2.0 on 03/17 after vitamin K 10mg IV x 1 in the ED. - Hold all anticoagulation given his anemia (5) VIDHYA (acute kidney injury): Baseline Cr is ~1.3; eGFR of 50. On admission, VIDHYA with Cr up to 2.0. Pres umed pre-renal; received IV fluids - On 03/19, Cr down to 1.28 - Monitor Cr (6) Elevated troponin: Troponin was elevated to 0.23 on admission; stable at 0.26 & 0.27 on repeats. - This is not an acute thrombotic event; likely demand ischemia in the setting of anemia - Replete hgb > 8 for demand ischemia (7) Paroxysmal atrial fibrillation: EKG showed afib on admission with rate of 80. - Holding all anticoagulation for anemia and concern for bleeding (8) DVT prophylaxis: SCDs; no heparin for concern for hemothorax and GI bleed Aawairting input from palliative care. Spent 25 minutes in management of patient. Subjective 83 yo male reports no new complaints. Reports no fevers/chills, chest pain, shortness of breath, abdominal pain, nausea, or vomiting. Review of Systems Review of Systems: All systems reviewed & are unremarkable except as noted in HPI & below Physical Exam Physical Exam: Constitutional: WD/WN, vitals as above Eyes: EOM intact bilaterally; no conjunctival abnormality ENMT: external ear and nose normal, oropharynx normal Neck: trachea midline, no thyromegaly normal visual inspection Respiratory: normal respiratory effort, lungs clear to auscultation no respiratory distress Cardiovascular: RRR, no murmur, no edema Gastrointestinal (Abdomen): Inspection/Auscultation: abdomen normal to inspection; abdomen not distended Musculoskeletal: no cyanosis or clubbing, extremities motor strength 5/5 Skin: no rashes, warm and dry Neurologic: moves all extremities and awake Psychiatric: Orientation: alert, oriented to person and cooperative Results & Data Vital Signs (Past 12 Hours) Vital Signs Temp Pulse Pulse Resp BP Pulse Ox 03/19/19 23:33 71 03/19/19 19:29 36.4 C L 83 16 124/77 96 03/19/19 15:03 36.5 C 78 16 161/80 H 95 03/19/19 13:04 94 03/19/19 11:50 36.5 C 76 19 128/75 93 (1) GI bleed GI bleed type/associated pathology: unspecified gastrointestinal hemorrhage type Qualified Code(s): K92.2 - Gastrointestinal hemorrhage, unspecified (2) Anemia Anemia type: unspecified type Qualified Code(s): D64.9 - Anemia, unspecified
[2019-03-20] MEDS ORDERED: MoRPHine SULFATE 2 MG/ML CARP IV STA (02:21)
[2019-03-20] MEDS: PANTOprazole 40 MG TAB PO SCH ×2 (08:25→21:02)
[2019-03-20] MEDS: POLYETHYLENE (MIRALAX) 17 GM PACK PO SCH (08:25)
[2019-03-20] MEDS: DOCUSATE SODIUM 100 MG CAP PO SCH ×2 (08:25→21:02)
[2019-03-20] MEDS: FINASTERIDE 5 MG TAB PO SCH (08:25)
--- NOTE | 2019-03-20 14:39 | Progress Note ---
DATE: 03/20/2019 Mr. Wolfe was seen today. He remains on room air with 97% saturations. He has agreed to palliative care, which I think is appropriate. I do not believe that doing anything different with Mr. Wolfe would be appropriate. He certainly does not warrant any intervention. We will sign off. Please call us back if needed.
[2019-03-20] MEDS: POTASSIUM CHLORIDE 20 MEQ TABCR PO SCH (17:03)
[2019-03-20] MEDS: SERTRALINE HCL 100 MG TABLET PO SCH (21:02)
[2019-03-20] MEDS: POTASSIUM CHLORIDE 10 MEQ TABCR PO SCH (21:02)
--- NOTE | 2019-03-20 22:44 | Hospitalist Progress Note ---
Date of Service March 20, 2019 Assessment & Plan (1) Hemothorax: Right hemothorax noted on CT a/p on 03/16. - Discussed with Dr. Guerrero - Does not feel this is an acute bleed. Given his significant comorbidities, he does not feel surgical intervention is warranted or will benefit the patient. - Conservative care; patient being transitioned to home hospice. (2) GI bleed: Source of bleeding was thought to be GI, but no major melenic or bloody BMs since admission. - Seen by GI on 03/16 - Continue PPI PO BID - Clear liquid diet (3) Anemia: Baseline hgb ~10-11. Hgb was 8.0 on admission. Received 2 units PRBCs on 03/16 with bump to 10.3. Source of bleeding was thought to be GI, but no major melenic or bloody BMs since admission. B12 & folate both normal. Iron panel normal, but in the setting of getting recent transfusions, this may not be accurate. - On 03/19, hgb stable; as being transitioned to hospice, will not recheck levels unless significant bleeding occurs. - Plans as above (4) Elevated INR: INR was 7.9 on admission; down to 2.0 on 03/17 after vitamin K 10mg IV x 1 in the ED. - Hold all anticoagulation given his anemia (5) VIDHYA (acute kidney injury): Baseline Cr is ~1.3; eGFR of 50. On admission, VIDHYA with Cr up to 2.0. Presumed pre-renal; received IV fluids - On 03/19, Cr down to 1.28 - Monitor Cr (6) Elevated troponin: Troponin was elevated to 0.23 on admission; stable at 0.26 & 0.27 on repeats. - This is not an acute thrombotic event; likely demand ischemia in the setting of anemia - Replete hgb > 8 for demand ischemia (7) Paroxysmal atrial fibrillation: EKG showed afib on admission with rate of 80. - Holding all anticoagulation for anemia and concern for bleeding (8) DVT prophylaxis: SCDs; no heparin for concern for hemothorax and GI bleed Transitioning to palliative care Spent 25 minutes in management of patient. Subjective 83 yo male reports no new complaints. is at bedside. Review of Systems Review of Systems: Unobtainable due to mental health condition Physical Exam Physical Exam: Constitutional: WD/WN, vitals as above Eyes: EOM intact bilaterally; no conjunctival abnormality ENMT: external ear and nose normal, oropharynx normal Neck: trachea midline, no thyromegaly normal visual inspection Respiratory: normal respiratory effort, lungs clear to auscultation no respiratory distress Cardiovascular: RRR, no murmur, no edema Gastrointestinal (Abdomen): Inspection/Auscultation: abdomen normal to inspection; abdomen not distended Musculoskeletal: no cyanosis or clubbing, extremities motor strength 5/5 Skin: no rashes, warm and dry Neurologic: moves all extremities and awake Psychiatric: Orientation: alert, oriented to person and cooperative Results & Data Vital Signs (Past 12 Hours) Vital Signs Temp Pulse Resp BP BP Pulse Ox 03/20/19 19:04 36.6 C 83 20 158/74 H 99 03/20/19 16:00 36.8 C 84 18 144/69 H 96 03/20/19 11:48 36.9 C 91 H 18 122/72 97 (1) GI bleed GI bleed type/associated pathology: unspecified gastrointestinal hemorrhage type Qualified Code(s): K92.2 - Gastrointestinal hemorrhage, unspecified (2) Anemia Anemia type: unspecified type Qualified Code(s): D64.9 - Anemia, unspecified
[2019-03-20 23:36] VITALS: TEMP 97.7; O2SAT 96
[2019-03-21] MEDS: POTASSIUM CHLORIDE 10 MEQ TABCR PO SCH (08:42)
[2019-03-21] MEDS: FINASTERIDE 5 MG TAB PO SCH (08:42)
[2019-03-21] MEDS: POLYETHYLENE (MIRALAX) 17 GM PACK PO SCH ×2 (08:42→08:46)
[2019-03-21] MEDS: DOCUSATE SODIUM 100 MG CAP PO SCH (08:42)
[2019-03-21] MEDS: PANTOprazole 40 MG TAB PO SCH (08:42)
[2019-03-21 14:18] VITALS: BP 150/85; PULSE 69
--- NOTE | 2019-03-29 07:18 | Discharge Summary ---
Date of Service March 21, 2019 Admission HPI Per Admitting Provider 83-year-old male with history of high blood pressure, hyperlipidemia, diastolic CHF, paroxysmal A. fib, coronary artery disease status post CABG x1 in December 2017 with aortic valve replacement for history of rheumatic valvular heart disease, osteoarthritis, impaired fasting glucose, hard of hearing, BPH presents with increased weakness and fatigue that has been going on for months. Patient had appointment with cracking unit operator today and lab work was ordered for concern of weakness. Brand Mgr called patient to go to the emergency room for concern of significant anemia. Patient denies any hemoptysis hematemesis melena or hematochezia. Reports occasional abdominal tenderness related to hernia. Per patient has right inguinal hernia. denies any lightheadedness headache chest pain shortness of breath nausea vomiting diarrhea or constipation hematuria or dysuria at this time. No history of abdominal trauma. Patient often falls on buttocks. He now rides his walker and uses a wheelchair as he is too weak to walk. Social history: Denies alcohol use and has never smoked. No recreational drug use Surgical history: CABG x1 and aortic valve porcine in December 2017 and cholecystectomy Principal Diagnosis Hemothorax Discharge Exam Constitutional: WD/WN, vitals as above Eyes: EOM intact bilaterally; no conjunctival abnormality ENMT: external ear and nose normal, oropharynx normal Neck: trachea midline, no thyromegaly normal visual inspection Respiratory: normal respiratory effort, lungs clear to auscultation no respiratory distress Cardiovascular: RRR, no murmur, no edema Gastrointestinal (Abdomen): Inspection/Auscultation: abdomen normal to inspection; abdomen not distended Musculoskeletal: no cyanosis or clubbing, extremities motor strength 5/5 Skin: no rashes, warm and dry Neurologic: moves all extremities and awake Psychiatric: Orientation: alert, oriented to person and cooperative Discharge Data Allergies Allergy/AdvReac Type Severity Reaction Status Date / Time No Known Allergies Allergy Unknown Verified 03/18/04 07:51 Consultations 03/16/19 21:06 ED Decision to Admit Stat 03/17/19 00:58 Consult Cardiology Routine Consult Gastroenterology Routine 03/17/19 07:30 Consult Thoracic Surgery Routine 03/18/19 14:04 Consult Palliative Care Routine Ordered Studies 03/16/19 23:23 CT abd pelvis wo con Urgent Hospital Course (1) Hemothorax: Right hemothorax noted on CT a/p on 03/16. - Discussed with Dr. Guerrero - Does not feel this is an acute bleed. Given his significant comorbidities, he does not feel surgical intervention is warranted or will benefit the patient. - Conservative care; patient being transitioned to hospice today. (2) GI bleed: Source of bleeding was thought to be GI, but no major melenic or bloody BMs since admission. - Seen by GI on 03/16 - Continue PPI PO BID - Clear liquid diet (3) Anemia: Baseline hgb ~10-11. Hgb was 8.0 on admission. Received 2 units PRBCs on 03/16 with bump to 10.3. Source of bleeding was thought to be GI, but no major melenic or bloody BMs since admission. B12 & folate both normal. Iron panel normal, but in the setting of getting recent transfusions, this may not be accurate. - On 03/19, hgb stable; as being transitioned to hospice, will not recheck levels unless significant bleeding occurs. - Plans as above (4) Elevated INR: INR was 7.9 on admission; down to 2.0 on 03/17 after vitamin K 10mg IV x 1 in the ED. - Hold all anticoagulation given his anemia (5) VIDHYA (acute kidney injury): Baseline Cr is ~1.3; eGFR of 50. On admission, VIDHYA with Cr up to 2.0. Presumed pre-renal; received IV fluids - On 03/19, Cr down to 1.28 - Monitor Cr (6) Elevated troponin: Troponin was elevated to 0.23 on admission; stable at 0.26 & 0.27 on repeats. - This is not an acute thrombotic event; likely demand ischemia in the setting of anemia - Replete hgb > 8 for demand ischemia (7) Paroxysmal atrial fibrillation: EKG showed afib on admission with rate of 80. - Holding all anticoagulation for anemia and concern for bleeding (8) DVT prophylaxis: SCDs; no heparin for concern for hemothorax and GI bleed Transitioning to palliative care Total Time Total Time Spent Total Time Spent (In Minutes): 32 Total Time Includes: Examination of the Patient, Discharge Planning and Medication Reconciliation Discharge Plan Discharge Items Patient Disposition: Hospice - Home Reason For Visit: LOW HGB FOR GI BLEED Discharge Diagnosis: GI bleed Discharge Goals: Decrease discomfort Activity: As commented below Activity Comment: As tolerated. Non-emergency contact: Specialist Call non-emergency contact if: you have any medication questions and your symptoms worsen Follow-up/Referrals: Lulu Desir MD [Primary Care Provider] - Diet: Full liquid Addtl Provider Instructions: You will be discharged on home hospice. Prescriptions: New pantoprazole 40 mg Tablet,Delayed Release (Dr/Ec) 40 mg PO BID Qty: 60 RF: 0 docusate sodium 100 mg Capsule 100 mg PO BID Qty: 60 RF: 0 Continued amoxicillin 500 mg Capsule 2,000 mg PO DIRECTED PRN (Reason: Prior to Dental Appointments) RF: 0 sertraline 100 mg Tablet 100 mg PO QPM RF: 0 acetaminophen [Tylenol Arthritis Pain] 650 mg Tablet Extended Release 1,300 mg PO Q8H PRN (Reason: Pain) RF: 0 nitroglycerin 0.4 mg Tablet, Sublingual 0.4 mg Sublingual DIRECTED PRN (Reason: Chest Pain) RF: 0 finasteride 5 mg Tablet 5 mg PO QAM RF: 0 furosemide 40 mg tablet 80 mg PO QAM RF: 0 furosemide 40 mg tablet 60 mg PO QPM RF: 0 metformin 500 mg tablet 500 mg PO BID RF: 0 potassium chloride 10 mEq tablet extended release 10 meq PO QAM RF: 0 spironolactone 25 mg tablet 12.5 mg PO QAM RF: 0 Discontinued aspirin [Aspir-81] 81 mg Tablet,Delayed Release (Dr/Ec) 162 mg PO QPM RF: 0 warfarin 2 mg tablet 4 mg PO 6XWK RF: 0 warfarin 2 mg tablet 2 mg PO WK RF: 0 Stand-Alone Forms: [facility] Discharge Orders: Discharge Order (Routine); Ordered 03/21/19 Ordered By: Trenton Gonzalez Admission Data Admit Date/Time: 03/16/19 23:46 Attending Provider: Trenton Gonzalez Admit Provider: Gerber Schroeder Primary Care Provider: Lulu Desir Other Providers: Wilder Stevenson ; Gerber Schroeder ; Alonzo Vega ; Migel Spaulding ; Kolby Guerrero ; Danna Young Service: Medical Other Interventions: Discharge Summary Assessment (RN) Last Done: 03/21/19 14:17 DC Date/Time DO NOT enter until pt leaves facility: 03/21/19 15:50
== END 2019-03-21 15:50 | disposition hospice, home (50) | DRG 378 ==
LOC: ED 19:39 → 2S 23:46 → SUATTDRO 23:46 → 2S 03-17 00:16 → 4E 03-20 17:01